=== PATIENT | male | born 1945 | race Caucasian/White ===

== ENCOUNTER 2022-07-25 10:57 | Inpatient (IN) | payer MEDICARE ==
[~2022-07-25] VITALS: Ht 195 cm; Wt 71.4 kg
[2022-07-25] MEDS ORDERED: diphenhydrAMINE 25 MG TAB (BENADRYL) PO PRN (11:15)
[2022-07-25] MEDS ORDERED: ACETAMINOPHEN 325 MG TABLET PO PRN (11:15)
[2022-07-25] MEDS ORDERED: LACTULOSE SYRUP 10GM/15ML (ENULOSE) 30ML UDC PO PRN (11:15)
[2022-07-25] MEDS ORDERED: ONDANSETRON 4 MG (ZOFRAN) ORAL DISSOLVE TAB PO PRN (11:15)
[2022-07-25] MEDS ORDERED: morphine IMMEDIATE RELEASE 15 MG TABLET PO PRN (11:15)
[2022-07-25] MEDS ORDERED: morphine INJ 4 MG/ML 1 ML (VIAL/SYRINGE) IV PRN (11:15)
[2022-07-25] MEDS ORDERED: MILK OF MAGNESIA 400 MG/5 ML 30 ML UDC PO PRN (11:15)
[2022-07-25] MEDS ORDERED: MELATONIN 3 MG TABLET PO PRN (11:15)
[2022-07-25] MEDS ORDERED: CALCIUM CARBONATE 500 MG (TUMS) TAB.CHEW PO PRN (11:15)
[2022-07-25] MEDS ORDERED: NS IV 500 ML 500 ML IV PRN (11:15)
[2022-07-25] MEDS ORDERED: diphenhydrAMINE 50 MG/ML INJ (BENADRYL) IVP PRN (11:15)
[2022-07-25] MEDS ORDERED: ANTACID SUSP 30 ML UDC (MYLANTA) PO PRN (11:15)
[2022-07-25] MEDS ORDERED: polyethylene glycoL POWDER 17 GM (MIRALAX) PACK PO PRN (11:15)
[2022-07-25] MEDS ORDERED: ONDANSETRON 4 MG/2 ML (SDV) Z0FRAN IV PRN (11:15)
[2022-07-25] MEDS ORDERED: BISACODYL 10 MG SUPP (DULCOLAX) PR PRN (11:15)
--- NOTE | 2022-07-25 14:13 | Consultation-Cardiology ---
HPI-Cardiology Cardiology Consultation: Date of Consultation 07/25/22 Time Seen by a Provider: 14:30 Date of Admission 07-25-22 Attending Physician 07-25-22 Admitting Physician Admitting Physician: Vivien Greenberg DO Attending Physician: Vivien Greenberg DO Consulting Physician Feliberto Madrid MD HPI: Chief Complaint: CHB Bradycardia Mr. Phillips is a 76 yr old male transferred to ICU 9 from the [facility] ED with bradycardia and COVID +. [place] is [place]. He reports for the last several days he has had increasing weakness, SOB, cough and dizziness. He denies any syncope or near syncope. He reports he has a chronically "low HR" and if his HR is above 55 bpm that is unusual for him. He reports dry cough over the last few days. No c/o LE swelling. He reports he quit smoking 3 months ago. He reports he just moved to [place] less than a yr ago from [place]. He states he does not have a PCP locally yet and is still seeing his PCP in [place]. He reports occ diarrhea. No n/v. No report of fever or chills. Review of Systems-Cardiology Review of Systems Constitutional: No chills, No fever; lightheadedness, malaise Eyes: No vision change Ears/Nose/Throat: No nasal drainage, No recent hearing loss Respiratory: As described under HPI Cardiovascular: As described under HPI Gastrointestinal: As described under HPI Genitourinary: dysuria; No hematuria Musculoskeletal: no symptoms reported Skin: No rash on exposed areas, No ulcerations on exposed areas Psychiatric/Neurological: No anxiety, No depression, No seizure, No focal weakness, No syncope Hematologic: No bleeding abnormalities [id number] Hx Past Medical History PMH As described under Assessment. Family Medical History Family Medical History: No reported family h/o CAD or SCD. Allergies and Home Medications Allergies Coded Allergies: No Known Drug Allergies (Unverified , 07/25/22) Patient Home Medication List Amlodipine Besylate (Amlodipine Besylate) 10 Mg Tablet, 10 MG PO HS, (Reported) Entered as Reported by: JOSHUA GOODE on 07/25/221610 Last Action: Reviewed Atorvastatin Calcium (Atorvastatin Calcium) 20 Mg Tablet, 20 MG PO HS, (Reported) Entered as Reported by: JOSHUA GOODE on 07/25/221610 Last Action: Reviewed Metformin HCl (Metformin HCl) 500 Mg Tablet, 500 MG PO BID WITH MEALS, (Reported) Entered as Reported by: JOSHUA GOODE on 07/25/221610 Last Action: Reviewed Metoprolol Tartrate (Metoprolol Tartrate) 25 Mg Tablet, 12.5 MG PO DAILY, (Reported) Entered as Reported by: JOSHUA GOODE on 07/25/221610 Last Action: Reviewed Multivitamin (Multivitamin) 1 Each Tablet, 1 EACH PO DAILY, (Reported) Entered as Reported by: JOSHUA GOODE on 07/25/221610 Last Action: Reviewed Physical Exam-Cardiology Physical Exam Vital Signs/I&O 07/25/22 07/25/22 07/25/22 07/25/22 21:00 22:00 23:00 23:59 Pulse 71 72 57 Resp 22 19 16 B/P (MAP) 140/70 (93) 146/90 (108) 143/83 (103) Pulse Ox 95 94 93 O2 Delivery Room Air Room Air Room Air Room Air FiO2 96 07/26/22 07/26/22 07/26/22 07/26/22 00:00 01:00 01:00 02:00 Temp 36.9 Pulse 85 51 58 56 Resp 21 14 19 B/P (MAP) 181/98 (125) 130/78 (100) 139/87 (121) Pulse Ox 93 93 93 O2 Delivery Room Air Room Air Room Air 07/26/22 07/26/22 07/26/22 07/26/22 03:00 04:00 04:00 05:00 Pulse 73 78 71 Resp 28 22 25 B/P (MAP) 143/100 (120) 123/83 (95) 133/82 (99) Pulse Ox 97 94 O2 Delivery Room Air Room Air Room Air Room Air FiO2 95 07/26/22 07/26/22 07/26/22 06:00 07:06 08:00 Pulse 60 70 59 Resp 16 21 B/P (MAP) 136/73 (94) 153/89 (110) Pulse Ox 95 95 O2 Delivery Room Air Room Air 07/26/22 00:00 Intake Total 380 ml Output Total 1550 ml Balance -1170 ml Capillary Refill : Constitutional: AAO x 3, well-developed, well-nourished HEENT: PERRL, hearing is well preserved, oral hygience is good Neck: No carotid bruit; carotid pulses are 2 + bilaterally Respiratory: No accessory muscle use, No respiratory distress; chest expansion is symmetric, chest is bilaterally symmetric, other (prolonged exp phase) Cardiovascular: regular rate-rhythm; No JVD; S1 and S2 Gastrointestinal: No tender; soft, round, audible bowel sounds Extremities: no lower extremity edema bilateral Neurologic/Psychiatric: grossly intact (moves all extremities) Skin: No rash on exposed areas, No ulcerations on exposed areas Data Review Labs Laboratory Tests 07/25/22 15:36: Glucometer 90 07/25/22 20:38: Glucometer 101 07/26/22 05:13: White Blood Count 4.8, Red Blood Count 4.24L, Hemoglobin 12.9L, Hematocrit 37L, Mean Corpuscular Volume 88, Mean Corpuscular Hemoglobin 30, Mean Corpuscular Hemoglobin Concent 35, Red Cell Distribution Width 13.0, Platelet Count 138, Mean Platelet Volume 11.1, Immature Granulocyte % (Auto) 0, Neutrophils (%) (Auto) 56, Lymphocytes (%) (Auto) 32, Monocytes (%) (Auto) 11, Eosinophils (%) (Auto) 0, Basophils (%) (Auto) 1, Neutrophils # (Auto) 2.7, Lymphocytes # (Auto) 1.5, Monocytes # (Auto) 0.5, Eosinophils # (Auto) 0.0, Basophils # (Auto) 0.0, Immature Granulocyte # (Auto) 0.0, Sodium Level 144, Potassium Level 3.3L, Chloride Level 107, Carbon Dioxide Level 22, Anion Gap 15H, Blood Urea Nitrogen 16, Creatinine 1.10, Estimat Glomerular Filtration Rate 69, BUN/Creatinine Ratio 15, Glucose Level 102, Calcium Level 8.8, Corrected Calcium 8.7, Phosphorus Level 2.7, Magnesium Level 1.8, Total Bilirubin 0.6, Aspartate Amino Transf (AST/SGOT) 38H, Alanine Aminotransferase (ALT/SGPT) 25, Alkaline Phosphatase 56, Total Protein 7.9, Albumin 4.1 07/26/22 06:14: Glucometer 121H Lab from [facility] ED reviewed Radiology CXR from [facility] reviewed A/P-Cardiology Assessment/Admission Diagnosis CHB seen on EKG at [facility] Dizziness COVID + - management per medical services HTN HLD DM 2 Discussion and Recomendations CHB seen on EKG at [facility] reported HR 31 - telemetry tracings from [facility] show bradycardia with intermittent CHB - received 2 doses of Atropine at [facility] - stop all rate lowering agents - If bradycardia persists or CHB is seen despite rate lowering agents may need PPM COVID + - management per medical services Monitor lab closely - replace electrolytes HTN - treat with Amlodipine Echocardiogram today Further recs will be based on his hospital course We would like to thank medical services for this consult LEIN MIKE Jul 25, 2022 14:13
--- NOTE | 2022-07-25 14:35 | Progress Note ---
ANIBAL REYNOSO 07/25/22 1435: Progress Note SUBJECTIVE CC: Heart Block HPI: 76yo male presented to the [place] ED after experiencing two falls this morning. The patient claimed he had been feeling dizzy for the past 3 days and felt like he was coming down with a cold, after he fell this morning he knew he should go to the ED. He denied any head trauma during the falls, claimed he fell onto the couch. Once arriving to the [place] ED the patient was found to have a potential 3rd degree heart block. He was also found to be Covid positive. He was transferred to [facility] and admitted into the ICU. His initial ECG at [facility] showed the patient had a right bundle branch block. Cardiology has been consulted. PMH: Patient denied having any past medical history/no history of chronic disease PSH: Inguinal hernia repair (30 years ago) ALL: NKDA Meds: KCl 50ml @0 mls/hr IV Daily-Protocol Magnesium Sulfate/Dextrose 100ml @ 0mls/hr daily-Protocol K Dur Tablet 40meq Daily PO Senna 8.6mg BID PO Colace 100mg BID PO NovoLOG ACHS SC Sliding scale Lovenox Injection 40mg SC NaCl 500ml @30ml/hr [id number] PRN IV Morphine injection 2mg Q4H PRN IV Morphine tablet 7.5mg PRN PO Oxycodone 5mg Q4H PRN PO Benadryl tablet 25mg Q6H PRN PO Calcium Carbonate 500mg Q1H PRN PO Mylanta 30ml QID PRN PO Lactulose 20gm BID PRN PO Magnesium Hydroxide 30ml Daily PRN Dulcolax 10mg Daily PRN MO Miralax 17gm BID PRN PO Melatonin Tablet 3mg HS PRN Zofran 4mg Q6H PRN IV Tylenol 650mg Q4H PRN PO SH: Alcohol= None Tobacco= Smoked less than half a pack a day for 60 years. Quit 2 months ago Drugs= None FH: Father= Patient does not know Mother= Patient does not know No siblings ROS: Reports lightheadedness. Denies fever, SOB, N/V, abdominal pain, MUELLER OBJECTIVE Vitals Temp- BP-113/77 Pulse-52 RR- 16 O2-96 on RA Physical Exam General: Patient is in no apparent distress. CVS: Bradycardic. Denies chest pain. No rubs, gallops. Pulmonary: No increased work of breathing. In no apparent respiratory distress. Denies SOB. LE: No edema b/l. Sensation intact b/l. Pulses 2+ b/l ASSESSMENT+PLAN Heart Block Cardiology consulted Telemetry Place transcutaneous pacing pads Serial ECG and Troponin Covid Positive Tylenol for antipyretic PRN Lovenox 40mg SC daily for DVT prophylaxis Supportive care VIVIEN GIRALDO DO 07/26/22 0552: Supervisory-Addendum Brief Verification & Attestation Participated in pt care: history, MDM, physical Personally performed: exam, history, MDM, supervision of care Care discussed with: Medical Student Procedures: n/a Results interpretation: Verified all documentation Verification and Attestation of Medical Student E/M Service A medical student performed and documented this service in my presence. I reviewed and verified all information documented by the medical student and made modifications to such information, when appropriate. I personally performed the physical exam and medical decision making. Vivien Giraldo, Jul 26, 2022,05:52 ANIBAL REYNOSO Jul 25, 2022 14:35 VIVIEN GIRALDO DO Jul 26, 2022 05:52
[2022-07-25] MEDS ORDERED: ENOXAPARIN 40 MG/0.4 ML (LOVENOX) SYR SC SCH (15:00)
[2022-07-25] MEDS: NS IV 1000 ML 1,000 ML IV SCH ×2 (15:29→19:15)
[2022-07-25] MEDS: inSUlin ASPART (NovoLOG) 1 UNIT/0.01 ML (CHARGE PER UNIT) SC SCH ×2 (15:43→21:00)
[2022-07-25] MEDS ORDERED: METF-397 PO (16:11)
[2022-07-25] MEDS ORDERED: AMLO-251 PO (16:11)
[2022-07-25] MEDS ORDERED: ATOR20TA66 PO (16:11)
[2022-07-25] MEDS ORDERED: METO-333 PO (16:11)
[2022-07-25] MEDS ORDERED: MULT-1136 PO (16:11)
--- NOTE | 2022-07-25 17:34 | Consultation-Cardiology ---
HPI-Cardiology Cardiology Consultation: Date of Consultation 07/25/22 Time Seen by a Provider: 16:30 Date of Admission Attending Physician Admitting Physician Admitting Physician: Vivien Greenberg DO Attending Physician: Vivien Greenberg DO Consulting Physician ADAM WARD MD, MA, FACP, [facility], CCDS HPI: Chief Complaint: Reason for card consult: Bradycardia, intermittent advanced AV block Mr. Phillips is a 76 yr old male transferred to ICU 9 from the [facility] ED with bradycardia and COVID +. [id number]. He reports for the last several days he has had increasing weakness, SOB, cough and dizziness. He denies any syncope or near syncope. He reports he has a chronically "low HR" and if his HR is above 5 5 bpm that is unusual for him. He reports dry cough over the last few days. No c/o LE swelling. He reports he quit smoking 3 months ago. He reports he just moved to [place] less than a yr ago from [place]. He states he does not have a PCP locally yet and is still seeing his PCP in [place]. He reports occ diarrhea. No n/v. No report of fever or chills. Review of Systems-Cardiology Review of Systems Constitutional: No chills, No fever; lightheadedness, malaise Eyes: No vision change Ears/Nose/Throat: No nasal drainage, No recent hearing loss Respiratory: As described under HPI Cardiovascular: As described under HPI Gastrointestinal: As described under HPI Genitourinary: dysuria; No hematuria Musculoskeletal: no symptoms reported Skin: No rash on exposed areas, No ulcerations on exposed areas Psychiatric/Neurological: No anxiety, No depression, No seizure, No focal weakness, No syncope Hematologic: No bleeding abnormalities TLH-Lbrimn-Hfweuv Hx Patient Social History Alcohol Use?: No Pt feels they are or have been: No Past Medical History PMH As described under Assessment. Family Medical History Family Medical History: No reported family h/o CAD or SCD. Allergies and Home Medications Allergies Coded Allergies: No Known Drug Allergies (Unverified , 07/25/22) Patient Home Medication List Home Medication List Reviewed: Yes Amlodipine Besylate (Amlodipine Besylate) 10 Mg Tablet, 10 MG PO HS, (Reported) Entered as Reported by: JOSHUA GOODE on 07/25/22 1611 Last Action: Reviewed Atorvastatin Calcium (Atorvastatin Calcium) 20 Mg Tablet, 20 MG PO HS, (Reported) Entered as Reported by: JOSHUA GOODE on 07/25/221610 Last Action: Reviewed Metformin HCl (Metformin HCl) 500 Mg Tablet, 500 MG PO BID WITH MEALS, (Reported) Entered as Reported by: OJSHUA GOODE on 07/25/221610 Last Action: Reviewed Metoprolol Tartrate (Metoprolol Tartrate) 25 Mg Tablet, 12.5 MG PO DAILY, (Reported) Entered as Reported by: JOSHUA GOODE on 07/25/221610 Last Action: Reviewed Multivitamin (Multivitamin) 1 Each Tablet, 1 EACH PO DAILY, (Reported) Entered as Reported by: JOSHUA GOODE on 07/25/221610 Last Action: Reviewed Physical Exam-Cardiology Physical Exam Vital Signs/I&O 07/25/22 07/25/22 07/25/22 07/25/22 14:00 14:15 14:18 14:30 Pulse 74 77 78 57 Resp 30 14 B/P (MAP) 131/37 (68) 153/80 (104) 163/88 (113) Pulse Ox 97 97 98 O2 Delivery Room Air Room Air Room Air 07/25/22 07/25/22 07/25/22 07/25/22 14:45 15:00 15:15 15:30 Pulse 74 52 57 49 Resp 20 16 18 23 B/P (MAP) 165/74 (104) 113/77 (89) 136/121 (126) 148/62 (90) Pulse Ox 95 96 97 97 O2 Delivery Room Air Room Air Room Air Room Air 07/25/22 07/25/22 07/25/22 07/25/22 15:45 16:00 16:00 16:00 Temp 36.8 Pulse 55 51 Resp 23 20 B/P (MAP) 171/134 (146) 126/69 (88) Pulse Ox 96 96 O2 Delivery Room Air Nasal Cannula Room Air O2 Flow Rate 2.00 FiO2 96 07/25/22 07/25/22 07/25/22 07/25/22 16:15 16:30 16:45 17:00 Pulse 48 49 56 60 Resp 9 16 18 B/P (MAP) 150/65 (93) 111/83 (92) 140/72 (94) 109/75 (86) Pulse Ox 96 95 95 95 O2 Delivery Room Air Room Air Room Air Room Air Capillary Refill : Constitutional: AAO x 3, well-developed, well-nourished HEENT: PERRL, hearing is well preserved, oral hygience is good Neck: No carotid bruit; carotid pulses are 2 + bilaterally Respiratory: No accessory muscle use, No respiratory distress; chest expansion is symmetric, chest is bilaterally symmetric, other (prolonged exp phase) Cardiovascular: regular rate-rhythm; No JVD; S1 and S2 Gastrointestinal: No tender; soft, round, audible bowel sounds Extremities: no lower extremity edema bilateral Neurologic/Psychiatric: grossly intact (moves all extremities) Skin: No rash on exposed areas, No ulcerations on exposed areas Data Review Labs Laboratory Tests 07/25/22 15:36: Glucometer 90 A/P-Cardiology Assessment/Admission Diagnosis Intermittent advanced AV block seen on EKG at [facility] - ECG at time of admission to this hospital: s. dipesh (50s) and 1 deg AVB and RBBB Dizziness COVID + - management per medical services HTN HLD DM 2 Intermittent confusion - managed by the [facility] [employer] Discussion and Recomendations Bradycardia - stop all rate lowering agents - If symptomatic bradycardia or adv AV block is seen despite d/c rate-lowering agents, then may need PPM COVID + - management per medical services Monitor lab closely - replace electrolytes HTN - treat with Amlodipine Echocardiogram today Further recs will be based on his hospital course We would like to thank Medical services for this consult ADAM WARD MD FACP [facility] CCDS Jul 25, 2022 17:34
--- NOTE | 2022-07-25 17:55 | History & Physical ---
History of Present Illness Date Seen 07/25/22 Attending Physician PCP Admitting Physician: Vivien Greenberg DO Attending Physician: Vivien Greenberg DO Referring Physician Date of Admission Jul 25, 2022 at 14:03 Home Medications & Allergies Home Medications Reviewed patient Home Medication Reconciliation performed by pharmacy medication reconciliations mechanical sound technician and/or nursing. Patients Allergies have been reviewed. Allergies Allergies Coded Allergies No Known Drug Allergies (Unverified07/25/22) Physical Exam Physical Exam Vital Signs Vital Signs - First Documented 07/25/22 07/25/22 07/25/22 14:00 14:15 16:00 Temp 36.8 Pulse 74 Resp 30 B/P (MAP) 131/37 (68) Pulse Ox 97 O2 Delivery Room Air Capillary Refill : Height, Weight, BMI Height: '" Weight: lbs. oz. kg; 19.69 BMI Method: Results Results/Procedures Labs Laboratory Tests 07/26/22 05:13 Patient resulted labs reviewed. VIVIEN GREENBERG DO Jul 25, 2022 17:55
--- NOTE | 2022-07-25 18:04 | Tele-ICU Consult ---
History of Present Illness History of Present Illness Date Seen by Provider: Jul 25, 2022 Time Seen by Provider: 18:04 Date of Admission (Tele-ICU Physician , consultation) Available chart/ vitals / labs / Images reviewed H&P is from ER notes Patient's information available about PMH, Shx, Fhx allergy reviewed inEMR. ROS as per chart and RN report Now in ICU, hemodynamically stable Video assessment done using teleICU camera, rest of exam as per RN Discussed with RN. Consultants: Hospital course: 07/25 -from [place] ED -76 y/o male direct admit with 2nd degree heart block (+)COVID A/P Intermittent advanced AV block seen on EKG at [facility] - seem by cards " ECG at time of admission to this hospital: s. dipesh (50s) and 1 deg AVB and RBBB - all home meds on hold COVID + - not hypoxix - no need for steroids - will not recomn RMSV with dipesh if ge tworse DM 2 - ISS Intermittent confusion - managed by the Med svce Lines : , (Central Line Necessity Reviewed) [place]: OG: Nutrition: Analgesia: Anxiety/ delirium VTE Prophylaxis: jamia 40 Stress Ulcer Prophylaxis: na Plans in collaboration with bedside consultants and IM MDs. Discussed with RN to reach out if any questions or concerns A total of 20 minutes of critical care time was devoted to this patient today, required to treat and/or prevent further deterioration of critical care condition ( as above ) . Allergies and Home Medications Allergies Coded Allergies: No Known Drug Allergies (Unverified , 07/25/22) Home Medications Amlodipine Besylate 10 Mg Tablet, 10 MG PO HS, (Reported) Atorvastatin Calcium 20 Mg Tablet, 20 MG PO HS, (Reported) Metformin HCl 500 Mg Tablet, 500 MG PO BID WITH MEALS, (Reported) Metoprolol Tartrate 25 Mg Tablet, 12.5 MG PO DAILY, (Reported) TAKES OF A 25MG TAB Multivitamin 1 Each Tablet, 1 EACH PO DAILY, (Reported) Past Medical/Social/Family Hx Patient Social History Tobacco Use?: No Use of E-Cig and/or Vaping dev: No Substance use?: No Alcohol Use?: No Pt stated abuse/neglect: No Current Status Advance Directives: No Communicates: Verbally Primary Language: [place] Sensory deficits: Vision impairment, Hearing impairment Review of Systems Constitutional: see HPI Focused Exam Height, Weight, BMI Height: '" Weight: lbs. oz. kg; 19.69 BMI Method: Exam Exam Patient acknowledged, consented, and participated in this virtual visit which was conducted using real time audio/video Vital Signs Date Time Temp Pulse Resp B/P (MAP) Pulse Ox O2 Delivery O2 Flow Rate FiO2 07/25/22 17:00 60 18 109/75 (86) 95 Room Air 07/25/22 16:45 56 140/72 (94) 95 Room Air 07/25/22 16:30 49 16 111/83 (92) 95 Room Air 07/25/22 16:15 48 9 150/65 (93) 96 Room Air 07/25/22 16:00 36.8 07/25/22 16:00 51 20 126/69 (88) 96 Room Air 07/25/22 16:00 Nasal Cannula 2.00 96 07/25/22 15:45 55 23 171/134 (146) 96 Room Air 07/25/22 15:30 49 23 148/62 (90) 97 Room Air 07/25/22 15:15 57 18 136/121 (126) 97 Room Air 07/25/22 15:00 52 16 113/77 (89) 96 Room Air 07/25/22 14:45 74 20 165/74 (104) 95 Room Air 07/25/22 14:30 57 14 163/88 (113) 98 Room Air 07/25/22 14:18 78 07/25/22 14:15 77 30 153/80 (104) 97 Room Air 07/25/22 14:00 74 131/37 (68) 97 Room Air Height & Weight Height: '" Weight: lbs. oz. kg; 19.69 BMI Method: General Appearance: No Apparent Distress Assessment/Plan Assessment/Plan 1 ABBE BARNES MD Jul 25, 2022 18:04
[2022-07-25] MEDS: SENNOSIDES 8.6 MG (SENOKOT) TAB PO SCH (21:00)
[2022-07-25] MEDS: DOCUSATE SODIUM 100 MG (COLACE) CAP PO SCH (21:00)
--- NOTE | 2022-07-25 22:40 | History & Physical ---
ANIBAL REYNOSO 07/25/22 6830: History of Present Illness History of Present Illness Reason for visit/HPI CC: Heart Block HPI: 76yo male presented to the [place] ED after experiencing two falls this m orn. The patient claimed he had been feeling dizzy for the past 3 days and felt like he was coming down with a cold, after he fell this morning he knew he should go to the ED. He denied any head trauma during the falls, claimed he fell onto the couch. Once arriving to the [place] ED the patient was found to have a potential 3rd degree heart block. He was also found to be Covid positive. He was transferred to [facility] and admitted into the ICU. His initial ECG at [facility] showed the patient had a right bundle branch block. Cardiology has been consulted. Date of Admission Jul 25, 2022 at 14:03 Date Seen by a Provider: Jul 25, 2022 Time Seen by a Provider: 15:30 I consulted on this patient on 07/25/22 22:35 Attending Physician Admitting Physician Admitting Physician: Vivien Greenberg DO Attending Physician: Vivien Greenberg DO Consult Allergies and Home Medications Allergies Coded Allergies: No Known Drug Allergies (Unverified , 07/25/22) Patient Home Medication List Amlodipine Besylate (Amlodipine Besylate) 10 Mg Tablet, 10 MG PO HS, (Reported) Entered as Reported by: JOSHUA GOODE on 07/25/221610 Last Action: Reviewed Atorvastatin Calcium (Atorvastatin Calcium) 20 Mg Tablet, 20 MG PO HS, (Reported) Entered as Reported by: JOSHUA GOODE on 07/25/221610 Last Action: Reviewed Metformin HCl (Metformin HCl) 500 Mg Tablet, 500 MG PO BID WITH MEALS, (Reported) Entered as Reported by: JOSHUA GOODE on 07/25/221610 Last Action: Reviewed Metoprolol Tartrate (Metoprolol Tartrate) 25 Mg Tablet, 12.5 MG PO DAILY, (Reported) Entered as Reported by: JOSHUA GOODE on 07/25/221610 Last Action: Reviewed Multivitamin (Multivitamin) 1 Each Tablet, 1 EACH PO DAILY, (Reported) Entered as Reported by: JOSHUA GOODE on 07/25/221610 Last Action: Reviewed Past Jgiwnle-Tmowrf-Wvkdre Hx Patient Social History Marrital Status: Tobacco Use?: Yes Tobacco type used: Cigarettes Smoking Status: Former Smoker (Half a pack for 60 years. Quit 2 months ago) Use of E-Cig and/or Vaping dev: No Substance use?: No Alcohol Use?: No Pt feels they are or have been: No Current Status Advance Directives: No Communicates: Verbally Primary Language: [place]se Sensory deficits: Vision impairment, Hearing impairment Past Medical History Surgeries: Abdominal (Hernia repair) Patient claims he has no medical history, no chronic medical conditions Family Medical History No Pertinent Family Hx (Pt. reported has not seen parents since age 15) Review of Systems Constitutional: No chills, No dizziness, No fever; other (Lightheaded) Respiratory: No short of breath Cardiovascular: No chest pain Gastrointestinal: No abdominal pain, No nausea, No vomiting Physical Exam Vital Signs Vital Signs - First Documented 07/25/22 07/25/22 07/25/22 14:00 14:15 16:00 Temp 36.8 Pulse 74 Resp 30 B/P (MAP) 131/37 (68) Pulse Ox 97 O2 Delivery Room Air Capillary Refill : Height, Weight, BMI Height: '" Weight: lbs. oz. kg; 19.69 BMI Method: General Appearance: No Apparent Distress Respiratory: Chest Non Tender, Lungs Clear, No Accessory Muscle Use, No Respiratory Distress Cardiovascular: No Edema, No Gallop, Normal Peripheral Pulses, Bradycardia Gastrointestinal: Non Tender, Soft Extremity: Normal Capillary Refill, Normal Inspection, Non Tender, No Calf Tenderness, No Pedal Edema Neurologic/Psychiatric: Alert, Oriented x3 Assessment/Plan Assessment and Plan Heart Block Cardiology consulted Telemetry Place transcutaneous pacing pads Serial ECG and Troponin Echo tomorrow Covid Positive Tylenol for antipyretic PRN Lovenox 40mg SC daily for DVT prophylaxis Monitor O2 IV fluids Monitor mental status VIVIEN GREENBERG DO 07/26/22 0557: History of Present Illness History of Present Illness Reason for visit/HPI CC: Heart block with bradycardia and COVID HPI: This is a 76 yo male patient who moved her 1 year ago and still kept his PCP in [facility] who has a h/o DM, HTN, HLP who presented to [facility] for higher level of care from [facility] due to bradycardia and heart block with COVID. Currently he is doing well but still a bit confused and hallucinating. Allergies and Home Medications Allergies Coded Allergies: No Known Drug Allergies (Unverified , 07/25/22) Patient Home Medication List Home Medication List Reviewed: Yes Amlodipine Besylate (Amlodipine Besylate) 10 Mg Tablet, 10 MG PO HS, (Reported) Entered as Reported by: JOSHUA GOODE on 07/25/221610 Last Action: Reviewed Atorvastatin Calcium (Atorvastatin Calcium) 20 Mg Tablet, 20 MG PO HS, (Reported) Entered as Reported by: JOSHUA GOODE on 07/25/221610 Last Action: Reviewed Metformin HCl (Metformin HCl) 500 Mg Tablet, 500 MG PO BID WITH MEALS, (Reported) Entered as Reported by: JOSHUA GOODE on 07/25/221610 Last Action: Reviewed Metoprolol Tartrate (Metoprolol Tartrate) 25 Mg Tablet, 12.5 MG PO DAILY, (Reported) Entered as Reported by: JOSHUA GOODE on 07/25/221610 Last Action: Reviewed Multivitamin (Multivitamin) 1 Each Tablet, 1 EACH PO DAILY, (Reported) Entered as Reported by: JOSHUA GOODE on 07/25/221610 Last Action: Reviewed Past Texfdls-Erybxe-Ffowwc Hx Patient Social History Marrital Status: Tobacco Use?: Yes Tobacco type used: Cigarettes Smoking Status: Former Smoker (Half a pack for 60 years. Quit 2 months ago) Past Medical History High Cholesterol, Hypertension Diabetes, Non-Insulin dep Review of Systems Constitutional: see HPI, malaise, weakness EENTM: no symptoms reported Respiratory: dyspnea on exertion Cardiovascular: palpitations Gastrointestinal: no symptoms reported Genitourinary: no symptoms reported Musculoskeletal: no symptoms reported Skin: no symptoms reported Psychiatric/Neurological: Anxiety All Other Systems Reviewed Negative Unless Noted: Yes Physical Exam General Appearance: No Apparent Distress, WD/WN, Chronically ill Eyes: Bilateral Eye Normal Inspection, Bilateral Eye PERRL, Bilateral Eye EOMI HEENT: PERRL/EOMI, Normal ENT Inspection, Pharynx Normal Neck: Full Range of Motion, Normal Inspection, Non Tender, Supple, Carotid Bruit Respiratory: Chest Non Tender, Lungs Clear, Normal Breath Sounds, No Accessory Muscle Use, No Respiratory Distress Cardiovascular: No Edema, No Gallop, No JVD, No Murmur, Normal Peripheral Pulses, Bradycardia Gastrointestinal: Normal Bowel Sounds, No Organomegaly, No Pulsatile Mass, Non Tender, Soft Back: Normal Inspection, No CVA Tenderness, No Vertebral Tenderness Extremity: Normal Capillary Refill, Normal Inspection, Normal Range of Motion, Non Tender, No Calf Tenderness, No Pedal Edema Neurologic/Psychiatric: Alert, Oriented x3, No Motor/Sensory Deficits, Normal Mood/Affect Skin: Normal Color, Warm/Dry Lymphatic: No Adenopathy Assessment/Plan Assessment and Plan Assessment: Severe synptomatic bradycardia COVID HTN HLP DM Hallucinations Plan: Monitor closely Temporary pacemaker Cardiology consultation Problems: (1) Heart block (2) COVID (3) Hallucinations (4) Former smoker Admission Diagnosis Admission Status: Inpatient Order (span 2 midnights) Reason for Inpatient Admission: covid with bradycardia Supervisory-Addendum Brief Verification & Attestation Participated in pt care: history, MDM, physical Personally performed: exam, history, MDM, supervision of care Care discussed with: Medical Student Procedures: n/a Results interpretation: Verified all documentation Verification and Attestation of Medical Student E/M Service A medical student performed and documented this service in my presence. I reviewed and verified all information documented by the medical student and made modifications to such information, when appropriate. I personally performed the physical exam and medical decision making. Vivien Greenberg Jul 26, 2022,05:57 ANIBAL REYNOSO Jul 25, 2022 22:40 VIVIEN GREENBERG DO Jul 26, 2022 05:57
[2022-07-26 05:24] LABS: BASOPHILS % (AUTO) 1 % (0-10); EOSINOPHILS % (AUTO) 0 % (0-10); HEMATOCRIT 37 % (40-54); HEMOGLOBIN 12.9 g/dL (13.3-17.7); LYMPHOCYTES # (AUTO) 1.5 10^3/uL (1.0-4.0); LYMPHOCYTES % (AUTO) 32 % (12-44); MEAN CORPUSCULAR HEMOGLOBIN 30 pg (25-34); MEAN CORPUSCULAR HGB CONC 35 g/dL (32-36); MEAN CORPUSCULAR VOLUME 88 fL (80-99); MEAN PLATELET VOLUME 11.1 fL (9.0-12.2); MONOCYTES # (AUTO) 0.5 10^3/uL (0.0-1.0); MONOCYTES % (AUTO) 11 % (0-12); NEUTROPHILS # (AUTO) 2.7 10^3/uL (1.8-7.8); NEUTROPHILS % (AUTO) 56 % (42-75); PLATELET COUNT 138 10^3/uL (130-400); WHITE BLOOD COUNT 4.8 10^3/uL (4.3-11.0)
[2022-07-26 05:32] LABS: ALBUMIN 4.1 GM/DL (3.2-4.5)
[2022-07-26 05:33] LABS: POTASSIUM 3.3 MMOL/L (3.6-5.0)
[2022-07-26 05:34] LABS: CALCIUM 8.8 MG/DL (8.5-10.1)
[2022-07-26 05:35] LABS: TOTAL PROTEIN 7.9 GM/DL (6.4-8.2)
[2022-07-26 05:37] LABS: BILIRUBIN,TOTAL 0.6 MG/DL (0.1-1.0)
[2022-07-26 05:38] LABS: PHOSPHORUS 2.7 MG/DL (2.3-4.7)
[2022-07-26 05:39] LABS: CREATININE SERUM 1.1 MG/DL (0.60-1.30)
[2022-07-26 05:41] LABS: MAGNESIUM 1.8 MG/DL (1.6-2.4)
[2022-07-26] MEDS ORDERED: KCL 20 MEQ TAB (K-DUR) PO ONE ×2 (06:00→08:00)
[2022-07-26] MEDS ORDERED: KCL 20 MEQ TAB (K-DUR) PO SCH (06:00)
[2022-07-26] MEDS ORDERED: POTASSIUM CL 10MEQ/50ML IVPB 50 ML IV SCH (06:00)
[2022-07-26] MEDS: inSUlin ASPART (NovoLOG) 1 UNIT/0.01 ML (CHARGE PER UNIT) SC SCH ×4 (06:00→20:35)
[2022-07-26] MEDS ORDERED: MAGNESIUM 1 GM/100 ML IVPB 100 ML IV SCH (06:00)
--- NOTE | 2022-07-26 06:52 | Diagnostic Imaging Report ---
Indication: COVID positive, heart block. Portable chest 5:10 AM Heart and mediastinum are normal. Lungs are clear. There are no effusions or pneumothoraces. There are granulomatous changes of the right upper lobe. IMPRESSION: No acute abnormalities in the chest. Dictated by: Dictated on workstation # [id number]
[2022-07-26] MEDS: SENNOSIDES 8.6 MG (SENOKOT) TAB PO SCH ×2 (07:39→20:33)
[2022-07-26] MEDS: DOCUSATE SODIUM 100 MG (COLACE) CAP PO SCH ×2 (07:39→20:33)
--- NOTE | 2022-07-26 08:55 | Progress Note - Cardiology ---
Cardiology SOAP Progress Note Subjective: Sitting up in bed No c/o CP, SOB, dizziness, syncope or near syncope Gen fatigue Objective: I&O/Vital Signs 07/26/22 07/26/22 07/26/22 07/26/22 04:00 04:00 05:00 06:00 Pulse 78 71 60 Resp 22 25 16 B/P (MAP) 123/83 (95) 133/82 (99) 136/73 (94) Pulse Ox 97 94 95 O2 Delivery Room Air Room Air Room Air Room Air FiO2 95 07/26/22 07/26/22 07/26/22 07/26/22 07:06 08:00 09:00 09:00 Pulse 70 59 55 Resp 21 17 B/P (MAP) 153/89 (110) 165/107 (126) Pulse Ox 95 O2 Delivery Room Air Room Air Room Air FiO2 96 07/26/22 07/26/22 07/26/22 07/26/22 10:00 11:00 12:00 12:00 Temp 36.1 Pulse 61 61 Resp 17 19 B/P (MAP) 136/88 (104) 129/81 (97) Pulse Ox 96 95 O2 Delivery Room Air Room Air Room Air FiO2 97 07/26/22 07/26/22 07/26/22 07/26/22 12:00 13:00 13:19 14:00 Pulse 57 96 51 50 Resp 22 30 19 B/P (MAP) 143/99 (114) 162/81 (108) 153/85 (107) Pulse Ox 95 97 94 O2 Delivery Room Air Room Air Room Air 07/26/22 00:00 Intake Total 380 ml Output Total 1550 ml Balance -1170 ml Constitutional: AAO x 3, well-developed, well-nourished Respiratory: No accessory muscle use, No respiratory distress; chest expansion is symmetric, chest is bilaterally symmetric, lungs clear to auscultation, other (prolonged exp phase) Cardiovascular: regular rate-rhythm; No JVD; S1 and S2 Gastrointestional: No tender; soft, round, audible bowel sounds Extremities: no lower extremity edema bilateral Neurologic/Psychiatric: grossly intact (moves all extremities) Skin: No rash on exposed areas, No ulcerations on exposed areas Results/Procedures: Labs Laboratory Tests 07/25/22 15:36: Glucometer 90 07/25/22 20:38: Glucometer 101 07/26/22 05:13: White Blood Count 4.8, Red Blood Count 4.24L, Hemoglobin 12.9L, Hematocrit 37L, Mean Corpuscular Volume 88, Mean Corpuscular Hemoglobin 30, Mean Corpuscular Hemoglobin Concent 35, Red Cell Distribution Width 13.0, Platelet Count 138, Mean Platelet Volume 11.1, Immature Granulocyte % (Auto) 0, Neutrophils (%) (Aut o) 56, Lymphocytes (%) (Auto) 32, Monocytes (%) (Auto) 11, Eosinophils (%) (Auto) 0, Basophils (%) (Auto) 1, Neutrophils # (Auto) 2.7, Lymphocytes # (Auto) 1.5, Monocytes # (Auto) 0.5, Eosinophils # (Auto) 0.0, Basophils # (Auto) 0.0, Immature Granulocyte # (Auto) 0.0, Sodium Level 144, Potassium Level 3.3L, Chloride Level 107, Carbon Dioxide Level 22, Anion Gap 15H, Blood Urea Nitrogen 16, Creatinine 1.10, Estimat Glomerular Filtration Rate 69, BUN/Creatinine Ratio 15, Glucose Level 102, Calcium Level 8.8, Corrected Calcium 8.7, Phosphorus Level 2.7, Magnesium Level 1.8, Total Bilirubin 0.6, Aspartate Amino Transf (AST/SGOT) 38H, Alanine Aminotransferase (ALT/SGPT) 25, Alkaline Phosphatase 56, Total Protein 7.9, Albumin 4.1, Thyroid Stimulating Hormone (TSH) 2.06 07/26/22 06:14: Glucometer 121H 07/26/22 11:47: Glucometer 145H Procedures NAME: RICHARD PERERA [facility] REC#: [id number] PT STATUS: ADM IN : 1945 PHYSICIAN: MANJIT GIRALDO DO ADMIT DATE: 07/25/22/ICU Signed Date of Exam:07/26/22 CHEST 1 VIEW, AP/PA ONLY Indication: COVID positive, heart block. Portable chest 5:10 AM Heart and mediastinum are normal. Lungs are clear. There are no effusions or pneumothoraces. There are granulomatous changes of the right upper lobe. IMPRESSION: No acute abnormalities in the chest. Dictated by: Dictated on workstation # [id number] Dict: 07/26/22 0650 Trans: 07/26/22 0842 [facility] [id number] Interpreted by: BERHANE MARTINEZ MD Electronically signed by: BERHANE MARTINEZ MD 07/26/2242 A/P: Assessment: Intermittent advanced AV block seen on EKG at [facility] - ECG at time of admission to this hospital: s. dipesh (50s) and 1 deg AVB and RBBB Dizziness COVID + - management per medical services HTN HLD DM 2 Intermittent confusion - managed by the Med svce Plan: Bradycardia - stop all rate lowering agents - If symptomatic bradycardia or adv AV block is seen despite d/c rate-lowering agents, then may need PPM COVID + - management per medical services Monitor lab closely - replace electrolytes HTN - treat with Amlodipine Echocardiogram today Further recs will be based on his hospital course We would like to thank Medical services for this consult LENI MIKE Jul 26, 2022 08:55
[2022-07-26] MEDS: amLODIPine 5 MG (NORVASC) TAB PO SCH (09:28)
--- NOTE | 2022-07-26 09:28 | Tele-ICU Progress Note ---
Subjective Date Seen by a Provider: Jul 26, 2022 Time Seen by a Provider: 09:28 Subjective/Events-last exam (Tele-ICU Physician , Progress Note ) Available chart/ vitals / labs / Images reviewed Video assessment done using teleICU camera, rest of exam as per RN Discussed with RN Events overnight : Afebrile hemodynamically stable Respiratory - ra I/O = Drips: Pressors- no Consultants: [facility] Hospital course: Consultants: Hospital course: 07/25 -[facility] -76 y/o male direct admit with 2nd degree heart block (+)COVID A/P Intermittent advanced AV block seen on EKG at [facility] - seem by cards " ECG at time of admission to this hospital: s. dipesh (50s) and 1 deg AVB and RBBB -ECHO 60% - all home meds on hold COVID + asymptomatic ( vaccinated ) - not hypoxic- no need for steroids - will not recomn RMSV with dipesh if get worse DM 2 - ISS Intermittent confusion. and ongoing hallucinations - as per RN , reports them being new and recent - will check b12 , tsh, ua - additional eval / neuroexam and need for additional w/up ( images , lp ... - as per bedside team Lines : , (Central Line Necessity Reviewed) [place]: OG: Nutrition: Analgesia: Anxiety/ delirium VTE Prophylaxis: jamia 40 Stress Ulcer Prophylaxis: na Plans in collaboration with bedside consultants and IM MDs. Discussed with RN to reach out if any questions or concerns A total of 31 minutes of critical care time was devoted to this patient today, required to treat and/or prevent further deterioration of critical care condition ( as above ) . Sepsis Event Evaluation Height, Weight, BMI Height: '" Weight: lbs. oz. kg; 19.69 BMI Method: Exam Exam Patient acknowledged, consented, and participated in this virtual visit which was conducted using real time audio/video Vital Signs Date Time Temp Pulse Resp B/P (MAP) Pulse Ox O2 Delivery O2 Flow Rate FiO2 07/26/22 08:00 59 21 153/89 (110) 95 Room Air 07/26/22 07:06 70 07/26/22 06:00 60 16 136/73 (94) 95 Room Air 07/26/22 05:00 71 25 133/82 (99) 94 Room Air 07/26/22 04:00 78 22 123/83 (95) 97 Room Air 07/26/22 04:00 Room Air 95 07/26/22 03:00 73 28 143/100 (120) Room Air 07/26/22 02:00 36.9 56 19 139/87 (121) 93 Room Air 07/26/22 01:00 58 07/26/22 01:00 51 14 130/78 (100) 93 Room Air 07/26/22 00:00 85 21 181/98 (125) 93 Room Air 07/25/22 23:59 Room Air 96 07/25/22 23:00 57 16 143/83 (103) 93 Room Air 07/25/22 22:00 72 19 146/90 (108) 94 Room Air 07/25/22 21:00 71 22 140/70 (93) 95 Room Air 07/25/22 20:00 37.0 07/25/22 20:00 Room Air 95 07/25/22 20:00 52 22 141/77 (98) 95 Room Air 07/25/22 19:00 50 07/25/22 19:00 47 17 120/93 (102) 93 Room Air 07/25/22 18:00 52 20 141/82 (101) 96 Room Air 07/25/22 17:00 60 18 109/75 (86) 95 Room Air 07/25/22 16:45 56 140/72 (94) 95 Room Air 07/25/22 16:30 49 16 111/83 (92) 95 Room Air 07/25/22 16:15 48 9 150/65 (93) 96 Room Air 07/25/22 16:00 36.8 07/25/22 16:00 51 20 126/69 (88) 96 Room Air 07/25/22 16:00 Nasal Cannula 2.00 96 07/25/22 15:45 55 23 171/134 (146) 96 Room Air 07/25/22 15:30 49 23 148/62 (90) 97 Room Air 07/25/22 15:15 57 18 136/121 (126) 97 Room Air 07/25/22 15:00 52 16 113/77 (89) 96 Room Air 07/25/22 14:45 74 20 165/74 (104) 95 Room Air 07/25/22 14:30 57 14 163/88 (113) 98 Room Air 07/25/22 14:18 78 07/25/22 14:15 77 30 153/80 (104) 97 Room Air 07/25/22 14:00 74 131/37 (68) 97 Room Air I & O 07/26/22 07:00 Intake Total 560 ml Output Total 2950 ml Balance -2390 ml Height & Weight Height: '" Weight: lbs. oz. kg; 19.69 BMI Method: General Appearance: No Apparent Distress, WD/WN, Chronically ill HEENT: PERRL/EOMI, Normal ENT Inspection, Pharynx Normal Neck: Full Range of Motion, Normal Inspection, Non Tender, Supple, Carotid Bruit Respiratory: Chest Non Tender, Lungs Clear, Normal Breath Sounds, No Accessory Muscle Use, No Respiratory Distress Cardiovascular: No Edema, No Gallop, No JVD, No Murmur, Normal Peripheral Pulses, Bradycardia Extremity: Normal Capillary Refill, Normal Inspection, Normal Range of Motion, Non Tender, No Calf Tenderness, No Pedal Edema Neurologic/Psychiatric: Alert, Oriented x3, No Motor/Sensory Deficits, Normal Mood/Affect Skin: Normal Color, Warm/Dry Lymphatic: No Adenopathy Results Lab Laboratory Tests 07/26/22 05:13 Assessment/Plan Assessment/Plan 1 ABBE BARNES MD Jul 26, 2022 09:28
--- NOTE | 2022-07-26 10:40 | Progress Note ---
ANIBAL REYNOSO 07/26/22 1040: Subjective Date Seen by a Provider: Jul 26, 2022 Time Seen by a Provider: 09:00 Subjective/Events-last exam 07/26/2022: Altered mental status CXR completed Hypokalemia Covid + Contact pt. PCP Review of Systems General: No Chills, No Night Sweats, No Fatigue, No Malaise Pulmonary: No Dyspnea, No Pleuritic Chest Pain Cardiovascular: Lt Headedness (Upon standing); No: Chest Pain, Palpitations, Orthopnea, Paroxysmal Noc. Dyspnea, Edema Gastrointestinal: No: Nausea, Vomiting, Abdominal Pain Objective Exam Last Set of Vital Signs Vital Signs Date Time Temp Pulse Resp B/P (MAP) Pulse Ox O2 Delivery O2 Flow Rate FiO2 07/26/22 10:00 61 17 136/88 (104) 96 Room Air 07/26/22 09:00 96 07/26/22 02:00 36.9 07/25/22 16:00 2.00 Capillary Refill : I&O Intake and Output 07/25/22 23:59 Intake Total 380 ml Output Total 1550 ml Balance -1170 ml Intake Oral 380 ml Output Urine Total 1550 ml Daily Weight Change No General: Alert Lungs: Clear to Auscultation, Normal Air Movement Heart: Regular Rate, Normal S1, Normal S2, No Murmurs Results Lab Laboratory Tests 07/25/22 15:36: Glucometer 90 07/25/22 20:38: Glucometer 101 07/26/22 05:13: White Blood Count 4.8, Red Blood Count 4.24L, Hemoglobin 12.9L, Hematocrit 37L, Mean Corpuscular Volume 88, Mean Corpuscular Hemoglobin 30, Mean Corpuscular Hemoglobin Concent 35, Red Cell Distribution Width 13.0, Platelet Count 138, Mean Platelet Volume 11.1, Immature Granulocyte % (Auto) 0, Neutrophils (%) (Auto) 56, Lymphocytes (%) (Auto) 32, Monocytes (%) (Auto) 11, Eosinophils (%) (Auto) 0, Basophils (%) (Auto) 1, Neutrophils # (Auto) 2.7, Lymphocytes # (Auto) 1.5, Monocytes # (Auto) 0.5, Eosinophils # (Auto) 0.0, Basophils # (Auto) 0.0, Immature Granulocyte # (Auto) 0.0, Sodium Level 144, Potassium Level 3.3L, Chloride Level 107, Carbon Dioxide Level 22, Anion Gap 15H, Blood Urea Nitrogen 16, Creatinine 1.10, Estimat Glomerular Filtration Rate 69, BUN/Creatinine Ratio 15, Glucose Level 102, Calcium Level 8.8, Corrected Calcium 8.7, Phosphorus Level 2.7, Magnesium Level 1.8, Total Bilirubin 0.6, Aspartate Amino Transf (AST/SGOT) 38H, Alanine Aminotransferase (ALT/SGPT) 25, Alkaline Phosphatase 56, Total Protein 7.9, Albumin 4.1, Thyroid Stimulating Hormone (TSH) 2.06 07/26/22 06:14: Glucometer 121H Assessment/Plan Assessment/Plan Assess & Plan/Chief Complaint Heart Block Cardiology consulted Telemetry Place transcutaneous pacing pads Echo today Covid Positive CXR Tylenol for antipyretic PRN Lovenox 40mg SC daily for DVT prophylaxis Monitor O2 IV fluids Monitor mental status Altered Mental Status CT head ordered for today Contacting the patients PCP Possible baseline dementia Hyperlipidemia Atorvastatin 20mg HS PO Hypokalemia KCl tablet 40meq Daily PO Diabetes Insulin aspart ACHS SC Monitor blood glucose with AM labs Anion gap elevated to 15 today Preventative Care CXR showed granulomatous change of right upper lobe Recommend low dose CT to rule out lung cancer Move to 4th floor after CT and cardiology sees patient Clinical Quality Measures Admission Status Admission Dx Heart Block Cardiology consulted Telemetry Place transcutaneous pacing pads Serial ECG and Troponin Echo tomorrow Covid Positive Tylenol for antipyretic PRN Lovenox 40mg SC daily for DVT prophylaxis Monitor O2 IV fluids Monitor mental status VIVIEN GIRALDO DO 07/27/22 0615: Subjective Subjective/Events-last exam Improved status Cognition is an issue Trying to contact PCP Assessment/Plan Assessment/Plan Assess & Plan/Chief Complaint Isolation Supervisory-Addendum Brief Verification & Attestation Participated in pt care: history, MDM, physical Personally performed: exam, history, MDM, supervision of care Care discussed with: Medical Student Procedures: n/a Results interpretation: Verified all documentation Verification and Attestation of Medical Student E/M Service A medical student performed and documented this service in my presence. I reviewed and verified all information documented by the medical student and made modifications to such information, when appropriate. I personally performed the physical exam and medical decision making. Vivien Giraldo, Jul 27, 2022,06:15 ANIBAL REYNOSO Jul 26, 2022 10:40 VIVIEN GIRALDO DO Jul 27, 2022 06:15
--- NOTE | 2022-07-26 11:17 | Diagnostic Imaging Report ---
PROCEDURE: CT head without contrast. TECHNIQUE: Multiple contiguous axial images were obtained through the brain without the use of intravenous contrast. Auto Exposure Controls were utilized during the CT exam to meet ALARA standards for radiation dose reduction. INDICATION: Altered mental status, positive COVID. FINDINGS: There is generalized atrophy. There are no masses or hemorrhages. There are no extra-axial fluid collections. The paranasal sinuses are clear. IMPRESSION: Senescent changes of the brain with mild diffuse cerebral degeneration. No acute abnormality seen. Dictated by: Dictated on workstation # [id number]
[2022-07-26] MEDS ORDERED: KCL 20 MEQ TAB (K-DUR) PO NR (12:00)
[2022-07-26] MEDS: ENOXAPARIN INJECTION 30 MG/0.3 ML SYR SC SCH (14:40)
--- NOTE | 2022-07-26 15:00 | Progress Note - Cardiology ---
Cardiology SOAP Progress Note Subjective: Gen weakness and malaise No focal weakness No cp or palp or syncope No shortness of breath at rest No n/v/d Objective: I&O/Vital Signs 07/26/22 07/26/22 07/26/22 07/26/22 03:00 04:00 04:00 05:00 Pulse 73 78 71 Resp 28 22 25 B/P (MAP) 143/100 (120) 123/83 (95) 133/82 (99) Pulse Ox 97 94 O2 Delivery Room Air Room Air Room Air Room Air FiO2 95 07/26/22 07/26/22 07/26/22 07/26/22 06:00 07:06 08:00 09:00 Pulse 60 70 59 55 Resp 16 21 17 B/P (MAP) 136/73 (94) 153/89 (110) 165/107 (126) Pulse Ox 95 95 O2 Delivery Room Air Room Air Room Air 07/26/22 07/26/22 07/26/22 07/26/22 09:00 10:00 11:00 12:00 Temp 36.1 Pulse 61 61 Resp 17 19 B/P (MAP) 136/88 (104) 129/81 (97) Pulse Ox 96 95 O2 Delivery Room Air Room Air Room Air FiO2 96 07/26/22 07/26/22 07/26/22 07/26/22 12:00 12:00 13:00 13:19 Pulse 57 96 51 Resp 22 30 B/P (MAP) 143/99 (114) 162/81 (108) Pulse Ox 95 97 O2 Delivery Room Air Room Air Room Air FiO2 97 07/26/22 14:00 Pulse 50 Resp 19 B/P (MAP) 153/85 (107) Pulse Ox 94 O2 Delivery Room Air 07/26/22 00:00 Intake Total 380 ml Output Total 1550 ml Balance -1170 ml Constitutional: AAO x 3, well-developed, well-nourished Respiratory: No accessory muscle use, No respiratory distress; chest expansion is symmetric, chest is bilaterally symmetric, lungs clear to auscultation, other (prolonged exp phase) Cardiovascular: regular rate-rhythm; No JVD; S1 and S2 Gastrointestional: No tender; soft, round, audible bowel sounds Extremities: no lower extremity edema bilateral Neurologic/Psychiatric: grossly intact (moves all extremities) Skin: No rash on exposed areas, No ulcerations on exposed areas Results/Procedures: Labs Laboratory Tests 07/25/22 15:36: Glucometer 90 07/25/22 20:38: Glucometer 101 07/26/22 05:13: White Blood Count 4.8, Red Blood Count 4.24L, Hemoglobin 12.9L, Hematocrit 37L, Mean Corpuscular Volume 88, Mean Corpuscular Hemoglobin 30, Mean Corpuscular Hemoglobin Concent 35, Red Cell Distribution Width 13.0, Platelet Count 138, Mean Platelet Volume 11.1, Immature Granulocyte % (Auto) 0, Neutrophils (%) (Auto) 56, Lymphocytes (%) (Auto) 32, Monocytes (%) (Auto) 11, Eosinophils (%) (Auto) 0, Basophils (%) (Auto) 1, Neutrophils # (Auto) 2.7, Lymphocytes # (Auto) 1.5, Monocytes # (Auto) 0.5, Eosinophils # (Auto) 0.0, Basophils # (Auto) 0.0, I mmature Granulocyte # (Auto) 0.0, Sodium Level 144, Potassium Level 3.3L, Chloride Level 107, Carbon Dioxide Level 22, Anion Gap 15H, Blood Urea Nitrogen 16, Creatinine 1.10, Estimat Glomerular Filtration Rate 69, BUN/Creatinine Ratio 15, Glucose Level 102, Calcium Level 8.8, Corrected Calcium 8.7, Phosphorus Level 2.7, Magnesium Level 1.8, Total Bilirubin 0.6, Aspartate Amino Transf (AST/SGOT) 38H, Alanine Aminotransferase (ALT/SGPT) 25, Alkaline Phosphatase 56, Total Protein 7.9, Albumin 4.1, Thyroid Stimulating Hormone (TSH) 2.06 07/26/22 06:14: Glucometer 121H 07/26/22 11:47: Glucometer 145H A/P: Assessment: Bradyardia - Intermittent advanced AV block seen on EKG at [facility] oon 07/25/22 - Echo on 07/25/22: LVEF normal (60-65%) - ECG at time of admission to this hospital on 07/25/22: s. dipesh (50s) and 1 deg AVB and RBBB - ECG on 07/26/22: s. dipesh (50s) with 1 deg AVB and RBBB Dizziness and weakness COVID + - management per medical services HTN HLD DM 2 Intermittent confusion - managed by the Med svce Plan: Bradycardia may be related to beta-zuri use in a man with chronic bradycardia and 1st deg AVB. Could also be related to Covid. Continue to monitor. D/c NPO COVID + - management per medical services Monitor lab closely - replace electrolytes HTN - treat with Amlodipine ADAM WARD MD FACP [facility] Jul 26, 2022 15:00
[2022-07-27 05:25] LABS: BASOPHILS % (AUTO) 1 % (0-10); EOSINOPHILS % (AUTO) 1 % (0-10); HEMATOCRIT 44 % (40-54); HEMOGLOBIN 14.7 g/dL (13.3-17.7); LYMPHOCYTES # (AUTO) 1.5 10^3/uL (1.0-4.0); LYMPHOCYTES % (AUTO) 43 % (12-44); MEAN CORPUSCULAR HEMOGLOBIN 30 pg (25-34); MEAN CORPUSCULAR HGB CONC 33 g/dL (32-36); MEAN CORPUSCULAR VOLUME 89 fL (80-99); MEAN PLATELET VOLUME 11.4 fL (9.0-12.2); MONOCYTES # (AUTO) 0.5 10^3/uL (0.0-1.0); MONOCYTES % (AUTO) 13 % (0-12); NEUTROPHILS # (AUTO) 1.5 10^3/uL (1.8-7.8); NEUTROPHILS % (AUTO) 42 % (42-75); PLATELET COUNT 131 10^3/uL (130-400); WHITE BLOOD COUNT 3.5 10^3/uL (4.3-11.0)
[2022-07-27 05:45] LABS: ALBUMIN 4.4 GM/DL (3.2-4.5)
[2022-07-27 05:46] LABS: POTASSIUM 4.1 MMOL/L (3.6-5.0)
[2022-07-27 05:47] LABS: CALCIUM 9.4 MG/DL (8.5-10.1)
[2022-07-27 05:48] LABS: TOTAL PROTEIN 8.6 GM/DL (6.4-8.2)
[2022-07-27 05:50] LABS: BILIRUBIN,TOTAL 0.9 MG/DL (0.1-1.0)
[2022-07-27 05:52] LABS: CREATININE SERUM 1.03 MG/DL (0.60-1.30)
[2022-07-27] MEDS: inSUlin ASPART (NovoLOG) 1 UNIT/0.01 ML (CHARGE PER UNIT) SC SCH ×4 (05:56→19:46)
[2022-07-27] MEDS ORDERED: NON-FORMULARY MEDICATION 1 EA EA (Multivitamin 1 EACH) PO SCH (09:00)
[2022-07-27] MEDS: DOCUSATE SODIUM 100 MG (COLACE) CAP PO SCH ×2 (09:00→19:45)
[2022-07-27] MEDS: SENNOSIDES 8.6 MG (SENOKOT) TAB PO SCH ×2 (09:00→19:45)
[2022-07-27] MEDS: MULTIVIT W/MINERALS TAB (THERAGRAN M) PO SCH (09:41)
[2022-07-27] MEDS: amLODIPine 5 MG (NORVASC) TAB PO SCH (09:41)
[2022-07-27] MEDS ORDERED: NS IV 1000 ML 1,000 ML ONE ×2 (09:42→15:53)
[2022-07-27] MEDS ORDERED: HEParin (CATH LAB) 1,000 ML IV ONE (09:42)
[2022-07-27] MEDS ORDERED: LIDOCAINE 1% INJ 20 ML VIAL ONE (09:42)
[2022-07-27] MEDS ORDERED: ceFAZolin INJECTION 1,000 MG VIAL IV NR (10:00)
--- NOTE | 2022-07-27 11:55 | Tele-ICU Progress Note ---
Subjective Date Seen by a Provider: Jul 27, 2022 Time Seen by a Provider: 11:55 Subjective/Events-last exam (Tele-ICU Physician , Progress Note ) Available chart/ vitals / labs / Images reviewed Video assessment done using teleICU camera, rest of exam as per RN Discussed with RN Events overnight : Afebrile hemodynamically stable Respiratory - ra I/O = Drips: Pressors- no Consultants: [facility] Hospital course: Consultants: Hospital course: 07/25 -from [place] [facility] -76 y/o male direct admit with 2nd degree heart block (+)COVID A/P Intermittent advanced AV block seen on EKG at [facility] - seem by cards " ECG at time of admission to this hospital: s. dipesh (50s) and 1 deg AVB and RBBB -ECHO 60% - pacemaker planned COVID + asymptomatic ( vaccinated ) - not hypoxic- no need for steroids - will not recomn RMSV with dipesh if get worse DM 2 - ISS Intermittent confusion. and ongoing hallucinations - as per RN , reports them being new and recent - b12 , tsh WNL m, CTH - no acute issues ? neurodegenerative dx - - additional eval / neuroexam and need for additional w/up ( images , lp ... - as per bedside team Lines : peripg , (Central Line Necessity Reviewed) Woodward: void OG: Nutrition: po Analgesia: Anxiety/ delirium VTE Prophylaxis: jamia 40 Stress Ulcer Prophylaxis: na Plans in collaboration with bedside consultants and IM MDs. Discussed with RN to reach out if any questions or concerns A total of 25 minutes of critical care time was devoted to this patient toda y, required to treat and/or prevent further deterioration of critical care condition ( as above ) . Sepsis Event Evaluation Height, Weight, BMI Height: '" Weight: lbs. oz. kg; 18.72 BMI Method: Exam Exam Patient acknowledged, consented, and participated in this virtual visit which was conducted using real time audio/video Vital Signs Date Time Temp Pulse Resp B/P (MAP) Pulse Ox O2 Delivery O2 Flow Rate FiO2 07/27/22 11:00 55 21 144/71 (95) 98 Room Air 07/27/22 10:00 67 31 147/100 (116) 100 Room Air 07/27/22 09:00 35 21 136/80 (98) 96 Room Air 07/27/22 08:00 Room Air 100 07/27/22 08:00 41 9 144/76 (98) 96 Room Air 07/27/22 07:28 49 07/27/22 07:00 42 21 126/67 (86) 95 Room Air 07/27/22 04:23 Room Air 92 07/27/22 04:00 39 17 113/67 (82) 94 Room Air 07/27/22 02:19 36.4 Room Air 07/27/22 01:00 54 07/27/22 00:00 40 14 105/83 (90) 94 Room Air 07/26/22 23:49 Room Air 92 07/26/22 23:48 36.6 Room Air 07/26/22 20:17 Room Air 95 07/26/22 20:00 36.4 Room Air 07/26/22 20:00 67 17 111/83 (92) 94 Room Air 07/26/22 19:00 80 07/26/22 18:00 75 17 159/89 (112) 96 Room Air 07/26/22 17:00 52 9 139/104 (116) 94 Room Air 07/26/22 16:00 Room Air 92 07/26/22 16:00 92 24 98 Room Air 07/26/22 15:00 57 20 149/90 (109) 91 Room Air 07/26/22 14:00 50 19 153/85 (107) 94 Room Air 07/26/22 13:19 51 07/26/22 13:00 96 30 162/81 (108) 97 Room Air 07/26/22 12:00 57 22 143/99 (114) 95 Room Air 07/26/22 12:00 Room Air 97 07/26/22 12:00 36.1 I & O 07/27/22 07:00 Intake Total 1370 ml Output Total 1850 ml Balance -480 ml Height & Weight Height: '" Weight: lbs. oz. kg; 18.72 BMI Method: General Appearance: No Apparent Distress, WD/WN, Chronically ill HEENT: PERRL/EOMI, Normal ENT Inspection, Pharynx Normal Neck: Full Range of Motion, Normal Inspection, Non Tender, Supple, Carotid Bruit Respiratory: Chest Non Tender, Lungs Clear, Normal Breath Sounds, No Accessory Muscle Use, No Respiratory Distress Cardiovascular: No Edema, No Gallop, No JVD, No Murmur, Normal Peripheral Pulses, Bradycardia Capillary Refill: Less Than 3 Seconds Extremity: Normal Capillary Refill, Normal Inspection, Normal Range of Motion, Non Tender, No Calf Tenderness, No Pedal Edema Neurologic/Psychiatric: Alert, Oriented x3, No Motor/Sensory Deficits, Normal Mood/Affect Skin: Normal Color, Warm/Dry Lymphatic: No Adenopathy Results Lab Laboratory Tests 07/26/22 05:13 07/27/22 05:05 Assessment/Plan Assessment/Plan 1 ABBE BARNES MD Jul 27, 2022 11:55
--- NOTE | 2022-07-27 12:13 | Progress Note ---
Subjective Date Seen by a Provider: Jul 27, 2022 Time Seen by a Provider: 12:00 Subjective/Events-last exam Doing about the same Pacemaker will be placed Isolation for COVID remains No hypoxia Objective Exam Last Set of Vital Signs Vital Signs Date Time Temp Pulse Resp B/P (MAP) Pulse Ox O2 Delivery O2 Flow Rate FiO2 07/27/22 11:00 55 21 144/71 (95) 98 Room Air 07/27/22 08:00 100 07/27/22 02:19 36.4 07/25/22 16:00 2.00 Capillary Refill : Less Than 3 Seconds I&O Intake and Output 07/27/22 00:00 Intake Total 1180 ml Output Total 2750 ml Balance -1570 ml Intake Oral 1180 ml Output Urine Total 2750 ml # Voids 1 # Bowel Movements 4 General: Alert, Oriented X3, Cooperative, No Acute Distress Lungs: Clear to Auscultation, Normal Air Movement Heart: Regular Rate, Normal S1, Normal S2, No Murmurs Psych/Mental Status: Mental Status NL, Mood NL Results Lab Laboratory Tests 07/26/22 16:55: Glucometer 108 07/26/22 19:41: Glucometer 113H 07/27/22 05:05: White Blood Count 3.5L, Red Blood Count 4.97, Hemoglobin 14.7, Hematocrit 44, Mean Corpuscular Volume 89, Mean Corpuscular Hemoglobin 30, Mean Corpuscular Hemoglobin Concent 33, Red Cell Distribution Width 13.0, Platelet Count 131, Mean Platelet Volume 11.4, Immature Granulocyte % (Auto) 0, Neutrophils (%) (Auto) 42, Lymphocytes (%) (Auto) 43, Monocytes (%) (Auto) 13H, Eosinophils (%) (Auto) 1, Basophils (%) (Auto) 1, Neutrophils # (Auto) 1.5L, Lymphocytes # (Auto) 1.5, Monocytes # (Auto) 0.5, Eosinophils # (Auto) 0.0, Basophils # (Auto) 0.0, Immature Granulocyte # (Auto) 0.0, Sodium Level 141, Potassium Level 4.1, Chloride Level 105, Carbon Dioxide Level 22, Anion Gap 14, Blood Urea Nitrogen 15, Creatinine 1.03, Estimat Glomerular Filtration Rate 75, BUN/Creatinine Ratio 15, Glucose Level 111H, Calcium Level 9.4, Corrected Calcium 9.1, Magnesium Level 2.0, Total Bilirubin 0.9, Aspartate Amino Transf (AST/SGOT) 35H, Alanine Aminotransferase (ALT/SGPT) 23, Alkaline Phosphatase 66, Total Protein 8.6H, Albumin 4.4 Assessment/Plan Assessment/Plan Assess & Plan/Chief Complaint Assessment: Symptomatic bradycardia with heart block in need of pacemaker today HTN HLP DM COVID Plan: Pacemaker Diagnosis/Problems Diagnosis/Problems (1) Heart block (2) COVID (3) Hallucinations (4) Former smoker Clinical Quality Measures Admission Status Admission Dx Assessment: Severe synptomatic bradycardia COVID HTN HLP DM Hallucinations Plan: Monitor closely Temporary pacemaker Cardiology consultation MANJIT GIRALDO DO Jul 27, 2022 12:13
[2022-07-27] MEDS ORDERED: NS IV 1000 ML 1,000 ML IV ONE (15:00)
[2022-07-27] MEDS: ENOXAPARIN INJECTION 30 MG/0.3 ML SYR SC SCH (15:42)
[2022-07-27] MEDS ORDERED: ceFAZolin INJECTION 1,000 MG ONE (15:53)
[2022-07-27] MEDS ORDERED: fentaNYL INJ 100 MCG/2 ML AMP ONE ×2 (15:53→17:03)
[2022-07-27] MEDS ORDERED: MIDAZOLAM 5 MG/5 ML (VERSED) VIAL ONE ×2 (15:53→17:03)
[2022-07-27] MEDS ORDERED: diphenhydrAMINE 50 MG/ML INJ (BENADRYL) ONE (17:02)
--- NOTE | 2022-07-27 18:16 | Progress Note - Cardiology ---
Cardiology SOAP Progress Note Subjective: Malaise and dizziness No syncope No cp or palp or swelling Shortness of breath with activity Objective: I&O/Vital Signs 07/27/22 07/27/22 07/27/22 07/27/22 07:00 07:28 08:00 08:00 Pulse 42 49 41 Resp 21 9 B/P (MAP) 126/67 (86) 144/76 (98) Pulse Ox 95 96 O2 Delivery Room Air Room Air Room Air FiO2 100 07/27/22 07/27/22 07/27/22 07/27/22 09:00 10:00 11:00 12:00 Pulse 35 67 55 Resp 21 31 21 B/P (MAP) 136/80 (98) 147/100 (116) 144/71 (95) Pulse Ox 96 100 98 O2 Delivery Room Air Room Air Room Air Room Air FiO2 98 07/27/22 07/27/22 07/27/22 07/27/22 12:00 12:49 13:00 14:00 Pulse 56 62 47 60 Resp 21 17 18 B/P (MAP) 116/83 (94) 144/86 (105) 158/98 (118) Pulse Ox 95 98 100 O2 Delivery Room Air Room Air Room Air 07/27/22 07/27/22 15:00 16:00 Pulse 63 Resp 18 B/P (MAP) Pulse Ox 100 O2 Delivery Room Air Room Air FiO2 95 07/27/22 00:00 Intake Total 800 ml Output Total 1000 ml Balance -200 ml Constitutional: AAO x 3, well-developed, well-nourished Respiratory: No accessory muscle use, No respiratory distress; chest expansion is symmetric, chest is bilaterally symmetric, lungs clear to auscultation, other (prolonged exp phase) Cardiovascular: regular rate-rhythm; No JVD; S1 and S2 Gastrointestional: No tender; soft, round, audible bowel sounds Extremities: no lower extremity edema bilateral Neurologic/Psychiatric: grossly intact (moves all extremities) Skin: No rash on exposed areas, No ulcerations on exposed areas Results/Procedures: Labs Laboratory Tests 07/26/22 19:41: Glucometer 113H 07/27/22 05:05: White Blood Count 3.5L, Red Blood Count 4.97, Hemoglobin 14.7, Hematocrit 44, Mean Corpuscular Volume 89, Mean Corpuscular Hemoglobin 30, Mean Corpuscular Hemoglobin Concent 33, Red Cell Distribution Width 13.0, Platelet Count 131, Mean Platelet Volume 11.4, Immature Granulocyte % (Auto) 0, Neutrophils (%) (Auto) 42, Lymphocytes (%) (Auto) 43, Monocytes (%) (Auto) 13H, Eosinophils (%) (Auto) 1, Basophils (%) (Auto) 1, Neutrophils # (Auto) 1.5L, Lymphocytes # (Auto) 1.5, Monocytes # (Auto) 0.5, Eosinophils # (Auto) 0.0, Basophils # (Auto) 0.0, Immature Granulocyte # (Auto) 0.0, Sodium Level 141, Potassium Level 4.1, Chloride Level 105, Carbon Dioxide Level 22, Anion Gap 14, Blood Urea Nitrogen 15, Creatinine 1.03, Estimat Glomerular Filtration Rate 75, BUN/Creatinine Ratio 15, Glucose Level 111H, Calcium Level 9.4, Corrected Calcium 9.1, Magnesium Level 2.0, Total Bilirubin 0.9, Aspartate Amino Transf (AST/SGOT) 35H, Alanine Aminotransferase (ALT/SGPT) 23, Alkaline Phosphatase 66, Total Protein 8.6H, Albumin 4.4 07/27/22 12:54: Glucometer 124H 07/27/22 15:40: Glucometer 96 A/P: Assessment: Bradyardia - Intermittent advanced AV block seen on EKG at [facility] [place] oon 07/25/22 - Echo on 07/25/22: LVEF normal (60-65%) - continuing intermittent advanced AV block despite cessation of the low dose of beta-zuri that he was on since the morning of 07/25/22 - dual ch pacemaker (Medtronic) implantation on 07/27/22 Dizziness and weakness COVID + - management per medical services HTN HLD DM 2 Intermittent confusion - managed by the Med svce Plan: Due to continuing, intermittent Mobitz II and 3rd deg AV block, we proceeded with pacemaker implantation today after having obtained informed consent COVID + - management per medical services Monitor lab closely - replace electrolytes HTN - treat with Amlodipine ADAM WARD MD [facility] Jul 27, 2022 18:16
[2022-07-27] MEDS ORDERED: PATIENT MAY USE OWN MEDS, ALL PO SCH (18:30)
[2022-07-27] MEDS ORDERED: NS IV 1000 ML 1,000 ML IV SCH (18:30)
[2022-07-27] MEDS ORDERED: oxyCODONE/APAP 5/325MG (PERCOCET 5) TABLET PO PRN (18:30)
--- NOTE | 2022-07-27 18:47 | Diagnostic Imaging Report ---
EXAMINATION: Chest radiograph, portable AP view. DATE: 07/27/2022 6:41 PM INDICATION: 76-year-old male, pacemaker placement. COMPARISON: July 26, 2022. FINDINGS: There is a left-sided cardiac assist device with leads. Heart size and mediastinal contours are unchanged. There is no identified pneumothorax. There is no large pleural effusion. There is no identified interval focal airspace consolidation. There is a right upper lobe probable granuloma. IMPRESSION: No identified acute cardiopulmonary abnormality. Dictated by: Dictated on workstation # [id number]
[2022-07-27] MEDS: ceFAZolin INJECTION 500 MG in NS (IVPB) 50 ML IV SCH (20:36)
--- NOTE | 2022-07-28 03:05 | OPERATIVE REPORT ---
DATE OF SERVICE: 07/27/2022 PREOPERATIVE DIAGNOSIS: Intermittent advanced heart block (Mobitz two and third-degree). POSTOPERATIVE DIAGNOSIS: Intermittent advanced heart block (Mobitz two and third-degree). PROCEDURE: Dual chamber pacemaker implantation. ESTIMATED BLOOD LOSS: Less than 10 mL. The patient is a 76-year-old gentleman who presented with dizziness, weakness and near syncope. He was found to have marked bradycardia, and intermittent second-degree, type 2 and 30-degree atrioventricular block in the emergency room at the [facility] on 07/25/2022. He was in a very low dose of beta blockers. This was discontinued. He was transferred to this hospital. He remained in intermittent advanced atrioventricular block despite cessation of the lower dose of beta zuri that he was on. This continued for more than that. This was continued for more than 48 hours after the cessation of the beta blockers. Accordingly, a permanent dual chamber pacemaker implantation was carried out after having obtained an informed consent. DESCRIPTION OF PROCEDURE: He was brought to the cardiac catheterization laboratory in a fasting state. The left prepectoral area was prepared and draped in the usual sterile fashion. Lidocaine 1% was used for local anesthesia. Modified Seldinger technique was used to advance two guidewires into the left subclavian vein and the tip of the wires were placed in the right atrium. The sharp and blunt dissection was used to make a pacemaker pocket. The pocket was packed with saline gauze. The guidewires were used to advance sheaths and the wires were removed. The sheaths were used to advance leads and the sheaths were removed. Both leads are active fixation lead. One was placed at the right ventricular apex. The lead was placed at the right atrial appendage. All lead manipulation was carried out under fluoroscopy. The leads were then attached to a dual chamber pacemaker. The saline gauze was removed from the pocket and the pocket was thoroughly irrigated with normal saline. The pacemaker was placed in a TYRX pocket and all of this was placed in the pacemaker pocket and the pacemaker pocket was closed in 2 layers using 3.0 Vicryl. The leads had been sutured to the prepectoral fascia using sleeves and 0 Ethibond. Good pacemaker and sensing thresholds were obtained. R waves are measured at 8.9 millivolts and P waves were measured at 3.75 millivolts at the time of lead insertion. The lead impedance for the right atrium is 437 ohms and for the ventricle was 1216 ohms. The capture threshold for the atrium was 0.5 volts at 0.4 milliseconds and was 0.75 volts at 0.4 milliseconds for the ventricle. There was no diaphragmatic stimulation at 10 volts. The patient tolerated the procedure well. The atrial lead is a Medtronic model 073384-81 with serial #[id number]. The ventricular lead is Medtronic model 501265-65 and the serial number is [id number]. The pacemaker is Medtronic model C84BM24 with serial number [id number]. Job ID: [id number] DocumentID: [id number] Dictated Date: 07/27/2022 18:23:48 Research Executive Date: 07/28/2022 03:04:46 Dictated By: ADAM WARD MD, MA, FACP, FACC,
[2022-07-28 05:30] LABS: BASOPHILS % (AUTO) 1 % (0-10); EOSINOPHILS % (AUTO) 1 % (0-10); HEMATOCRIT 42 % (40-54); LYMPHOCYTES # (AUTO) 1.3 10^3/uL (1.0-4.0); LYMPHOCYTES % (AUTO) 30 % (12-44); MEAN CORPUSCULAR HEMOGLOBIN 30 pg (25-34); MEAN CORPUSCULAR HGB CONC 34 g/dL (32-36); MEAN CORPUSCULAR VOLUME 88 fL (80-99); MEAN PLATELET VOLUME 11.2 fL (9.0-12.2); MONOCYTES # (AUTO) 0.4 10^3/uL (0.0-1.0); MONOCYTES % (AUTO) 9 % (0-12); NEUTROPHILS # (AUTO) 2.6 10^3/uL (1.8-7.8); NEUTROPHILS % (AUTO) 59 % (42-75); PLATELET COUNT 124 10^3/uL (130-400); WHITE BLOOD COUNT 4.3 10^3/uL (4.3-11.0)
[2022-07-28 05:34] LABS: POTASSIUM 3.7 MMOL/L (3.6-5.0)
[2022-07-28 05:35] LABS: CALCIUM 8.6 MG/DL (8.5-10.1)
[2022-07-28 05:36] LABS: TOTAL PROTEIN 7.7 GM/DL (6.4-8.2)
[2022-07-28 05:38] LABS: BILIRUBIN,TOTAL 0.8 MG/DL (0.1-1.0)
[2022-07-28 05:40] LABS: CREATININE SERUM 0.88 MG/DL (0.60-1.30)
[2022-07-28 05:43] LABS: MAGNESIUM 1.9 MG/DL (1.6-2.4)
[2022-07-28] MEDS: MULTIVIT W/MINERALS TAB (THERAGRAN M) PO SCH (05:55)
[2022-07-28] MEDS: ceFAZolin INJECTION 500 MG in NS (IVPB) 50 ML IV SCH ×3 (05:55→20:31)
[2022-07-28] MEDS: inSUlin ASPART (NovoLOG) 1 UNIT/0.01 ML (CHARGE PER UNIT) SC SCH ×4 (05:55→20:42)
[2022-07-28] MEDS: amLODIPine 5 MG (NORVASC) TAB PO SCH (09:12)
[2022-07-28] MEDS: SENNOSIDES 8.6 MG (SENOKOT) TAB PO SCH ×2 (09:12→20:42)
[2022-07-28] MEDS: DOCUSATE SODIUM 100 MG (COLACE) CAP PO SCH ×2 (09:13→20:42)
--- NOTE | 2022-07-28 10:03 | Tele-ICU Progress Note ---
Subjective Date Seen by a Provider: Jul 28, 2022 Time Seen by a Provider: 10:03 Subjective/Events-last exam (Tele-ICU Physician , Progress Note ) Available chart/ vitals / labs / Images reviewed Video assessment done using teleICU camera, rest of exam as per RN Discussed with RN Events overnight : Afebrile hemodynamically stable Respiratory - ra I/O = Drips: Pressors- no Consultants: Hospital course: 07/25 -from [place] [facility] -76 y/o male direct admit with 2nd degree heart block (+)COVID A/P Intermittent advanced heart block (Mobitz two and third-degree). =s/p Dual chamber pacemaker implantation. 07/27 -ECHO 60% COVID +, asymptomatic ( vaccinated ) - not hypoxic- no need for steroids - will not recom RMSV with dipesh if get worse DM 2 - ISS Intermittent confusion at night , and ongoing hallucinations improved - b12 , tsh WNL m, CTH - no acute issues ? neurodegenerative dx - - additiona l eval / neuroexam and need for additional w/up ( images , lp ... - as per bedside team Lines : , (Central Line Necessity Reviewed) Woodward: OG: Nutrition: Analgesia: Anxiety/ delirium VTE Prophylaxis: jamia 40 Stress Ulcer Prophylaxis: na Plans in collaboration with bedside consultants and IM MDs. Discussed with RN to reach out if any questions or concerns A total of 10 minutes of critical care time was devoted to this patient today, required to treat and/or prevent further deterioration of critical care condition ( as above ) . Sepsis Event Evaluation Height, Weight, BMI Height: '" Weight: lbs. oz. kg; 18.77 BMI Method: Exam Exam Patient acknowledged, consented, and participated in this virtual visit which was conducted using real time audio/video Vital Signs Date Time Temp Pulse Resp B/P (MAP) Pulse Ox O2 Delivery O2 Flow Rate FiO2 07/28/22 08:22 36.3 07/28/22 08:00 63 37 144/97 (113) 96 Room Air 07/28/22 08:00 96 Room Air 07/28/22 07:04 60 07/28/22 04:46 96 Room Air 07/28/22 04:39 36.0 07/28/22 04:26 60 10 165/86 (112) 95 Room Air 07/28/22 04:00 59 10 154/107 (120) 94 Room Air 07/28/22 01:00 60 07/28/22 00:00 96 Room Air 07/28/22 00:00 Room Air 07/28/22 00:00 60 13 134/76 (95) 93 Room Air 07/27/22 23:52 36.4 07/27/22 23:00 61 14 151/76 (103) 95 Room Air 07/27/22 22:00 76 34 135/82 (106) 93 Room Air 07/27/22 21:00 131 26 138/89 (121) 96 Room Air 07/27/22 20:00 92 123/101 (102) 95 Room Air 07/27/22 20:00 96 Room Air 07/27/22 20:00 36.1 Room Air 07/27/22 19:00 60 07/27/22 19:00 60 10 130/76 (98) 92 Room Air 07/27/22 18:39 63 07/27/22 18:00 70 17 121/82 (95) 96 Room Air 07/27/22 16:00 60 17 151/77 (101) 96 Room Air 07/27/22 16:00 Room Air 95 07/27/22 15:00 63 18 100 Room Air 07/27/22 14:00 60 18 158/98 (118) 100 Room Air 07/27/22 13:00 47 17 144/86 (105) 98 Room Air 07/27/22 12:49 62 07/27/22 12:00 56 21 116/83 (94) 95 Room Air 07/27/22 12:00 Room Air 98 07/27/22 11:00 55 21 144/71 (95) 98 Room Air I & O 07/28/22 07:00 Intake Total 2825 ml Output Total 1625 ml Balance 1200 ml Height & Weight Height: '" Weight: lbs. oz. kg; 18.77 BMI Method: General Appearance: No Apparent Distress, WD/WN, Chronically ill HEENT: PERRL/EOMI, Normal ENT Inspection, Pharynx Normal Neck: Full Range of Motion, Normal Inspection, Non Tender, Supple, Carotid Bruit Respiratory: Chest Non Tender, Lungs Clear, Normal Breath Sounds, No Accessory Muscle Use, No Respiratory Distress Cardiovascular: No Edema, No Gallop, No JVD, No Murmur, Normal Peripheral Pulses, Bradycardia Capillary Refill: Less Than 3 Seconds Extremity: Normal Capillary Refill, Normal Inspection, Normal Range of Motion, Non Tender, No Calf Tenderness, No Pedal Edema Neurologic/Psychiatric: Alert, Oriented x3, No Motor/Sensory Deficits, Normal Mood/Affect Skin: Normal Color, Warm/Dry Lymphatic: No Adenopathy Results Lab Laboratory Tests 07/27/22 05:05 07/28/22 05:00 Assessment/Plan Assessment/Plan 1 ABBE BARNES MD Jul 28, 2022 10:03
--- NOTE | 2022-07-28 14:55 | Progress Note ---
CHRISTA ERVIN 07/28/22 1455: Subjective Date Seen by a Provider: Jul 28, 2022 Time Seen by a Provider: 09:00 Subjective/Events-last exam Patient was sitting up in his bed this morning in good spirits following the successful placement of a pacemaker for his AFib yesterday. He denies having any SOA, chest pain, N/V, sweats or chills currently. He feels well Review of Systems General: No Chills, No Night Sweats Pulmonary: No Dyspnea, No Cough Gastrointestinal: No: Nausea, Vomiting, Abdominal Pain Objective Exam Last Set of Vital Signs Vital Signs Date Time Temp Pulse Resp B/P (MAP) Pulse Ox O2 Delivery O2 Flow Rate FiO2 07/28/22 13:00 60 07/28/22 12:00 23 156/87 (110) 94 Room Air 07/28/22 08:22 36.3 07/27/22 16:00 95 07/25/22 16:00 2.00 Capillary Refill : Less Than 3 Seconds I&O Intake and Output 07/28/22 00:00 Intake Total 2045 ml Output Total 1350 ml Balance 695 ml Intake Oral 990 ml IV Total 1055 ml Output Urine Total 1350 ml # Voids 1 # Bowel Movements 1 General: Alert, Oriented X3, No Acute Distress HEENT: PERRLA, EOMI, Mucous Memb Moist/Crescent Neck: Supple Lungs: Clear to Auscultation Heart: Regular Rate, No Murmurs Abdomen: Normal Bowel Sounds, Soft, No Tenderness Extremities: No Edema, Normal Pulses Neuro: Normal Speech Results Lab Laboratory Tests 07/27/22 15:40: Glucometer 96 07/27/22 19:42: Glucometer 99 07/28/22 05:00: White Blood Count 4.3, Red Blood Count 4.70, Hemoglobin 14.0, Hematocrit 42, Mean Corpuscular Volume 88, Mean Corpuscular Hemoglobin 30, Mean Corpuscular Hemoglobin Concent 34, Red Cell Distribution Width 12.8, Platelet Count 124L, Mean Platelet Volume 11.2, Immature Granulocyte % (Auto) 0, Neutrophils (%) (Auto) 59, Lymphocytes (%) (Auto) 30, Monocytes (%) (Auto) 9, Eosinophils (%) (Auto) 1, Basophils (%) (Auto) 1, Neutrophils # (Auto) 2.6, Lymphocytes # (Auto) 1.3, Monocytes # (Auto) 0.4, Eosinophils # (Auto) 0.0, Basophils # (Auto) 0.0, Immature Granulocyte # (Auto) 0.0, Sodium Level 138, Potassium Level 3.7, Chloride Level 107, Carbon Dioxide Level 20L, Anion Gap 11, Blood Urea Nitrogen 16, Creatinine 0.88, Estimat Glomerular Filtration Rate 89, BUN/Creatinine Ratio 18, Glucose Level 100, Calcium Level 8.6, Corrected Calcium 8.6, Magnesium Level 1.9, Total Bilirubin 0.8, Aspartate Amino Transf (AST/SGOT) 31, Alanine Aminotransferase (ALT/SGPT) 21, Alkaline Phosphatase 61, Total Protein 7.7, Albumin 4.0 07/28/22 10:20: Glucometer 108 Assessment/Plan Assessment/Plan Assess & Plan/Chief Complaint Heart Block - s/p dual chamber pacemaker placement on 07/27 Cardiology following Telemetry Currently receiving IV Cefazolin Covid Positive CXR yesterday was unremarkable Tylenol for antipyretic PRN Lovenox 40mg SC daily for DVT prophylaxis Monitor O2 - no requirements currently IV fluids Monitor mental status - seems to be improving Altered Mental Status Has been improving over last few days CT head 07/26 showed no acute abnormalities Possible baseline dementia Hyperlipidemia Atorvastatin 20mg HS PO Hypokalemia Resolved Diabetes Insulin aspart ACHS OK VIVIEN GIRALDO DO 07/29/22 0610: Assessment/Plan Assessment/Plan Assess & Plan/Chief Complaint Doing much better Monitor closely Discharge home tomorrow Supervisory-Addendum Brief Verification & Attestation Participated in pt care: history, MDM, physical Personally performed: exam, history, MDM, supervision of care Care discussed with: Medical Student Procedures: n/a Results interpretation: Verified all documentation Verification and Attestation of Medical Student E/M Service A medical student performed and documented this service in my presence. I reviewed and verified all information documented by the medical student and made modifications to such information, when appropriate. I personally performed the physical exam and medical decision making. Vivien Giraldo, Jul 29, 2022,06:09 CHRISTA ERVIN Jul 28, 2022 14:55 VIVIEN GIRALDO DO Jul 29, 2022 06:10
[2022-07-28] MEDS: ENOXAPARIN INJECTION 30 MG/0.3 ML SYR SC SCH (15:06)
[2022-07-28 16:29] VITALS: BP 176/90
--- NOTE | 2022-07-28 16:41 | Progress Note - Cardiology ---
Cardiology SOAP Progress Note Subjective: No cp or palp or syncope No n/v/d Gen weakness improving No swelling No shortness of breath at rest Objective: I&O/Vital Signs 07/28/22 07/28/22 07/28/22 07/28/22 04:39 04:46 07:04 08:00 Temp 36.0 Pulse 60 Pulse Ox 96 96 O2 Delivery Room Air Room Air 07/28/22 07/28/22 07/28/22 07/28/22 08:00 08:22 12:00 12:00 Temp 36.3 Pulse 63 63 Resp 37 23 B/P (MAP) 144/97 (113) 156/87 (110) Pulse Ox 96 96 94 O2 Delivery Room Air Room Air Room Air 07/28/22 07/28/22 13:00 16:29 Temp 36.3 Pulse 60 63 Resp 18 B/P (MAP) 176/90 (118) Pulse Ox 96 O2 Delivery Room Air 07/28/22 00:00 Intake Total 1355 ml Output Total 600 ml Balance 755 ml Constitutional: AAO x 3, well-developed, well-nourished Respiratory: No accessory muscle use, No respiratory distress; chest expansion is symmetric, chest is bilaterally symmetric, lungs clear to auscultation, other (prolonged exp phase) Cardiovascular: regular rate-rhythm; No JVD; S1 and S2 Gastrointestional: No tender; soft, round, audible bowel sounds Extremities: no lower extremity edema bilateral Neurologic/Psychiatric: grossly intact (moves all extremities) Skin: No rash on exposed areas, No ulcerations on exposed areas Results/Procedures: Labs Laboratory Tests 07/27/22 19:42: Glucometer 99 07/28/22 05:00: White Blood Count 4.3, Red Blood Count 4.70, Hemoglobin 14.0, Hematocrit 42, Mean Corpuscular Volume 88, Mean Corpuscular Hemoglobin 30, Mean Corpuscular Hemoglobin Concent 34, Red Cell Distribution Width 12.8, Platelet Count 124L, Mean Platelet Volume 11.2, Immature Granulocyte % (Auto) 0, Neutrophils (%) (Auto) 59, Lymphocytes (%) (Auto) 30, Monocytes (%) (Auto) 9, Eosinophils (%) (Auto) 1, Basophils (%) (Auto) 1, Neutrophils # (Auto) 2.6, Lymphocytes # (Auto) 1.3, Monocytes # (Auto) 0.4, Eosinophils # (Auto) 0.0, Basophils # (Auto) 0.0, Immature Granulocyte # (Auto) 0.0, Sodium Level 138, Potassium Level 3.7, Chlori de Level 107, Carbon Dioxide Level 20L, Anion Gap 11, Blood Urea Nitrogen 16, C reatinine 0.88, Estimat Glomerular Filtration Rate 89, BUN/Creatinine Ratio 18, Glucose Level 100, Calcium Level 8.6, Corrected Calcium 8.6, Magnesium Level 1.9, Total Bilirubin 0.8, Aspartate Amino Transf (AST/SGOT) 31, Alanine Aminotransferase (ALT/SGPT) 21, Alkaline Phosphatase 61, Total Protein 7.7, Albumin 4.0 07/28/22 10:20: Glucometer 108 07/28/22 16:24: Glucometer 122H Laboratory Tests 07/27/22 05:05 07/28/22 05:00 A/P: Assessment: Bradyardia - Intermittent advanced AV block seen on EKG at [facility] on 07/25/22 - Echo on 07/25/22: LVEF normal (60-65%) - continuing intermittent advanced AV block despite cessation of the low dose of beta-zuri that he was on since the morning of 07/25/22 - dual ch pacemaker (Medtronic) implantation on 07/27/22. Functioning normally on interrogation of 07/28/22 Dizziness and weakness COVID + - management per medical services HTN HLD DM 2 Intermittent confusion - managed by the Med svce Plan: COVID + - management per medical services Monitor lab closely - replace electrolytes HTN - treat with Amlodipine ADAM WARD MD FACP [facility] CCDS Jul 28, 2022 16:41
[2022-07-28 19:45] VITALS: BP 186/92
[2022-07-28 20:26] VITALS: BP 145/83
[2022-07-28 23:35] VITALS: BP 159/88
[2022-07-29 05:01] VITALS: BP 139/77
[2022-07-29] MEDS: inSUlin ASPART (NovoLOG) 1 UNIT/0.01 ML (CHARGE PER UNIT) SC SCH ×2 (05:01→11:49)
[2022-07-29 06:27] LABS: EOSINOPHILS % (AUTO) 0 % (0-10); MEAN CORPUSCULAR HEMOGLOBIN 30 pg (25-34); MEAN CORPUSCULAR HGB CONC 34 g/dL (32-36)
[2022-07-29 06:29] LABS: BASOPHILS % (AUTO) 0 % (0-10); HEMATOCRIT 41 % (40-54); HEMOGLOBIN 14.1 g/dL (13.3-17.7); LYMPHOCYTES # (AUTO) 1.3 10^3/uL (1.0-4.0); LYMPHOCYTES % (AUTO) 25 % (12-44); MEAN CORPUSCULAR VOLUME 88 fL (80-99); MEAN PLATELET VOLUME 11.3 fL (9.0-12.2); MONOCYTES # (AUTO) 0.6 10^3/uL (0.0-1.0); MONOCYTES % (AUTO) 11 % (0-12); NEUTROPHILS # (AUTO) 3.3 10^3/uL (1.8-7.8); NEUTROPHILS % (AUTO) 63 % (42-75); PLATELET COUNT 118 10^3/uL (130-400); WHITE BLOOD COUNT 5.2 10^3/uL (4.3-11.0)
[2022-07-29 06:40] LABS: POTASSIUM 3.4 MMOL/L (3.6-5.0)
[2022-07-29 06:41] LABS: CALCIUM 8.8 MG/DL (8.5-10.1)
[2022-07-29 06:42] LABS: TOTAL PROTEIN 7.8 GM/DL (6.4-8.2)
[2022-07-29 06:44] LABS: BILIRUBIN,TOTAL 0.9 MG/DL (0.1-1.0)
[2022-07-29 06:46] LABS: CREATININE SERUM 0.87 MG/DL (0.60-1.30)
[2022-07-29] MEDS: amLODIPine 5 MG (NORVASC) TAB PO SCH (08:07)
[2022-07-29] MEDS: DOCUSATE SODIUM 100 MG (COLACE) CAP PO SCH (08:07)
[2022-07-29] MEDS: MULTIVIT W/MINERALS TAB (THERAGRAN M) PO SCH (08:07)
[2022-07-29] MEDS: SENNOSIDES 8.6 MG (SENOKOT) TAB PO SCH (08:07)
[2022-07-29 08:09] VITALS: BP 179/84
[2022-07-29] MEDS ORDERED: AMLO-251 PO (09:24)
[2022-07-29] MEDS ORDERED: CEFU500T63 PO (09:26)
[2022-07-29] MEDS ORDERED: ceFAZolin INJECTION 500 MG in NS (IVPB) 50 ML IV ONE (09:30)
[2022-07-29] MEDS ORDERED: amLODIPine 5 MG (NORVASC) TAB PO NR (09:30)
[2022-07-29 12:00] VITALS: BP 139/81
--- NOTE | 2022-07-29 12:34 | Discharge Summary ---
Diagnosis/Chief Complaint Date of Admission Jul 25, 2022 at 14:03 Date of Discharge Discharge Date: Jul 29, 2022 Discharge Diagnosis Assessment: Severe synptomatic bradycardia COVID HTN HLP DM Hallucinations Reason Hospital Visit CC: Heart block with bradycardia and COVID HPI: This is a 76 yo male patient who moved her 1 year ago and still kept his PCP in [facility] who has a h/o DM, HTN, HLP who presented to [facility] for higher level of care from [facility] due to bradycardia and heart block with COVID. Currently he is doing well but still a bit confused and hallucinating. Discharge Summary Discharge Physical Examination Allergies: Coded Allergies: No Known Drug Allergies (Unverified , 07/25/22) Vitals & I&Os Vital Signs Date Time Temp Pulse Resp B/P (MAP) Pulse Ox O2 Delivery O2 Flow Rate FiO2 07/29/22 13:20 36.8 81 18 139/81 95 Room Air 2.00 07/27/22 16:00 95 General Appearance: Alert, Oriented X3, Cooperative Respiratory: Clear to Auscultation Cardiovascular: Regular Rate Psych/Mental Status: Mental Status NL Hospital Course Was the Problem List Reviewed?: Yes Manpreet is a 76yo male w/PMH of HTN, HLD and diabetes who was transferred here from [facility] after an EKG showed intermittent advanced AV block and bradycardia. He went to [facility] due to weakness and dizziness on 07/25 and was transfered here same day. He was bradycardic and COVID + on arrival. Cardiology was consulted and followed him throughout the stay. He was taking a beta zuri which was discontinued and after 48 hours his bradycardia & heart block had not resolved. He was taken to surgery for placement of a dual chamber pacemaker which was done without complication. His bradycardia resolved, weakness and shortness of breath both improved. He is COVID + but has minimal symptoms and is not requiring any oxygen. Manpreet will follow up with cardiology per their recommendations. Labs (last 24 hrs) Laboratory Tests 07/25/22 15:36: Glucometer 90 07/25/22 20:38: Glucometer 101 07/26/22 05:13: White Blood Count 4.8, Red Blood Count 4.24L, Hemoglobin 12.9L, Hematocrit 37L, Mean Corpuscular Volume 88, Mean Corpuscular Hemoglobin 30, Mean Corpuscular Hemoglobin Concent 35, Red Cell Distribution Width 13.0, Platelet Count 138, Me an Platelet Volume 11.1, Immature Granulocyte % (Auto) 0, Neutrophils (%) (Auto) 56, Lymphocytes (%) (Auto) 32, Monocytes (%) (Auto) 11, Eosinophils (%) (Auto) 0, Basophils (%) (Auto) 1, Neutrophils # (Auto) 2.7, Lymphocytes # (Auto) 1.5, Monocytes # (Auto) 0.5, Eosinophils # (Auto) 0.0, Basophils # (Auto) 0.0, Immature Granulocyte # (Auto) 0.0, Sodium Level 144, Potassium Level 3.3L, Chloride Level 107, Carbon Dioxide Level 22, Anion Gap 15H, Blood Urea Nitrogen 16, Creatinine 1.10, Estimat Glomerular Filtration Rate 69, BUN/Creatinine Ratio 15, Glucose Level 102, Calcium Level 8.8, Corrected Calcium 8.7, Phosphorus Level 2.7, Magnesium Level 1.8, Total Bilirubin 0.6, Aspartate Amino Transf (AST/SGOT) 38H, Alanine Aminotransferase (ALT/SGPT) 25, Alkaline Phosphatase 56, Total Protein 7.9, Albumin 4.1, Vitamin B12 Level 404, Thyroid Stimulating Hormone (TSH) 2.06 07/26/22 06:14: Glucometer 121H 07/26/22 11:47: Glucometer 145H 07/26/22 16:55: Glucometer 108 07/26/22 19:41: Glucometer 113H 07/27/22 05:05: White Blood Count 3.5L, Red Blood Count 4.97, Hemoglobin 14.7, Hematocrit 44, Mean Corpuscular Volume 89, Mean Corpuscular Hemoglobin 30, Mean Corpuscular Hemoglobin Concent 33, Red Cell Distribution Width 13.0, Platelet Count 131, Mean Platelet Volume 11.4, Immature Granulocyte % (Auto) 0, Neutrophils (%) (Auto) 42, Lymphocytes (%) (Auto) 43, Monocytes (%) (Auto) 13H, Eosinophils (%) (Auto) 1, Basophils (%) (Auto) 1, Neutrophils # (Auto) 1.5L, Lymphocytes # (Auto) 1.5, Monocytes # (Auto) 0.5, Eosinophils # (Auto) 0.0, Basophils # (Auto) 0.0, Immature Granulocyte # (Auto) 0.0, Sodium Level 141, Potassium Level 4.1, Chloride Level 105, Carbon Dioxide Level 22, Anion Gap 14, Blood Urea Nitrogen 15, Creatinine 1.03, Estimat Glomerular Filtration Rate 75, BUN/Creatinine Ratio 15, Glucose Level 111H, Calcium Level 9.4, Corrected Calcium 9.1, Magnesium Level 2.0, Total Bilirubin 0.9, Aspartate Amino Transf (AST/SGOT) 35H, Alanine Aminotransferase (ALT/SGPT) 23, Alkaline Phosphatase 66, Total Protein 8.6H, Albumin 4.4 07/27/22 12:54: Glucometer 124H 07/27/22 15:40: Glucometer 96 07/27/22 19:42: Glucometer 99 07/28/22 05:00: White Blood Count 4.3, Red Blood Count 4.70, Hemoglobin 14.0, Hematocrit 42, Mean Corpuscular Volume 88, Mean Corpuscular Hemoglobin 30, Mean Corpuscular Hemoglobin Concent 34, Red Cell Distribution Width 12.8, Platelet Count 124L, Mean Platelet Volume 11.2, Immature Granulocyte % (Auto) 0, Neutrophils (%) (Auto) 59, Lymphocytes (%) (Auto) 30, Monocytes (%) (Auto) 9, Eosinophils (%) (Auto) 1, Basophils (%) (Auto) 1, Neutrophils # (Auto) 2.6, Lymphocytes # (Auto) 1.3, Monocytes # (Auto) 0.4, Eosinophils # (Auto) 0.0, Basophils # (Auto) 0.0, Immature Granulocyte # (Auto) 0.0, Sodium Level 138, Potassium Level 3.7, Chloride Level 107, Carbon Dioxide Level 20L, Anion Gap 11, Blood Urea Nitrogen 16, Creatinine 0.88, Estimat Glomerular Filtration Rate 89, BUN/Creatinine Ratio 18, Glucose Level 100, Calcium Level 8.6, Corrected Calcium 8.6, Magnesium Level 1.9, Total Bilirubin 0.8, Aspartate Amino Transf (AST/SGOT) 31, Alanine Aminotransferase (ALT/SGPT) 21, Alkaline Phosphatase 61, Total Protein 7.7, Albumin 4.0 07/28/22 05:58: Glucometer 110 07/28/22 10:20: Glucometer 108 07/28/22 16:24: Glucometer 122H 07/28/22 20:01: Glucometer 102 07/29/22 04:58: Glucometer 114H 07/29/22 06:16: White Blood Count 5.2, Red Blood Count 4.68, Hemoglobin 14.1, Hematocrit 41, Mean Corpuscular Volume 88, Mean Corpuscular Hemoglobin 30, Mean Corpuscular Hemoglobin Concent 34, Red Cell Distribution Width 13.0, Platelet Count 118L, Mean Platelet Volume 11.3, Immature Granulocyte % (Auto) 0, Neutrophils (%) (Auto) 63, Lymphocytes (%) (Auto) 25, Monocytes (%) (Auto) 11, Eosinophils (%) (Auto) 0, Basophils (%) (Auto) 0, Neutrophils # (Auto) 3.3, Lymphocytes # (Auto) 1.3, Monocytes # (Auto) 0.6, Eosinophils # (Auto) 0.0, Basophils # (Auto) 0.0, Immature Granulocyte # (Auto) 0.0, Percent Immature Platelet Fraction 7.0, Sodium Level 136, Potassium Level 3.4L, Chloride Level 103, Carbon Dioxide Level 23, Anion Gap 10, Blood Urea Nitrogen 14, Creatinine 0.87, Estimat Glomerular Filtration Rate 89, BUN/Creatinine Ratio 16, Glucose Level 105, Calcium Level 8.8, Corrected Calcium 8.8, Magnesium Level 2.0, Total Bilirubin 0.9, Aspartate Amino Transf (AST/SGOT) 27, Alanine Aminotransferase (ALT/SGPT) 19, Alkaline Phosphatase 63, Total Protein 7.8, Albumin 4.0 07/29/22 11:46: Glucometer 156H Pending Labs Laboratory Tests 07/25/22 15:36: Glucometer 90 07/25/22 20:38: Glucometer 101 07/26/22 05:13: White Blood Count 4.8, Red Blood Count 4.24, Hemoglobin 12.9, Hematocrit 37, Mean Corpuscular Volume 88, Mean Corpuscular Hemoglobin 30, Mean Corpuscular Hemoglobin Concent 35, Red Cell Distribution Width 13.0, Platelet Count 138, Mean Platelet Volume 11.1, Immature Granulocyte % (Auto) 0, Neutrophils (%) (Auto) 56, Lymphocytes (%) (Auto) 32, Monocytes (%) (Auto) 11, Eosinophils (%) (Auto) 0, Basophils (%) (Auto) 1, Neutrophils # (Auto) 2.7, Lymphocytes # (Auto) 1.5, Monocytes # (Auto) 0.5, Eosinophils # (Auto) 0.0, Basophils # (Auto) 0.0, Immature Granulocyte # (Auto) 0.0, Sodium Level 144, Potassium Level 3.3, Chloride Level 107, Carbon Dioxide Level 22, Anion Gap 15, Blood Urea Nitrogen 16, Creatinine 1.10, Estimat Glomerular Filtration Rate 69, BUN/Creatinine Ratio 15, Glucose Level 102, Calcium Level 8.8, Corrected Calcium 8.7, Phosphorus Level 2.7, Magnesium Level 1.8, Total Bilirubin 0.6, Aspartate Amino Transf (AST/SGOT) 38, Alanine Aminotransferase (ALT/SGPT) 25, Alkaline Phosphatase 56, Total Protein 7.9, Albumin 4.1, Vitamin B12 Level 404, Thyroid Stimulating Hormone (TSH) 2.06 07/26/22 06:14: Glucometer 121 07/26/22 11:47: Glucometer 145 07/26/22 16:55: Glucometer 108 07/26/22 19:41: Glucometer 113 07/27/22 05:05: White Blood Count 3.5, Red Blood Count 4.97, Hemoglobin 14.7, Hematocrit 44, Mean Corpuscular Volume 89, Mean Corpuscular Hemoglobin 30, Mean Corpuscular Hemoglobin Concent 33, Red Cell Distribution Width 13.0, Platelet Count 131, Ruth n Platelet Volume 11.4, Immature Granulocyte % (Auto) 0, Neutrophils (%) (Auto) 42, Lymphocytes (%) (Auto) 43, Monocytes (%) (Auto) 13, Eosinophils (%) (Auto) 1, Basophils (%) (Auto) 1, Neutrophils # (Auto) 1.5, Lymphocytes # (Auto) 1.5, Monocytes # (Auto) 0.5, Eosinophils # (Auto) 0.0, Basophils # (Auto) 0.0, Immature Granulocyte # (Auto) 0.0, Sodium Level 141, Potassium Level 4.1, Chloride Level 105, Carbon Dioxide Level 22, Anion Gap 14, Blood Urea Nitrogen 15, Creatinine 1.03, Estimat Glomerular Filtration Rate 75, BUN/Creatinine Ratio 15, Glucose Level 111, Calcium Level 9.4, Corrected Calcium 9.1, Magnesium Level 2.0, Total Bilirubin 0.9, Aspartate Amino Transf (AST/SGOT) 35, Alanine Aminotransferase (ALT/SGPT) 23, Alkaline Phosphatase 66, Total Protein 8.6, Albumin 4.4 07/27/22 12:54: Glucometer 124 07/27/22 15:40: Glucometer 96 07/27/22 19:42: Glucometer 99 07/28/22 05:00: White Blood Count 4.3, Red Blood Count 4.70, Hemoglobin 14.0, Hematocrit 42, Mean Corpuscular Volume 88, Mean Corpuscular Hemoglobin 30, Mean Corpuscular Hemoglobin Concent 34, Red Cell Distribution Width 12.8, Platelet Count 124, Mean Platelet Volume 11.2, Immature Granulocyte % (Auto) 0, Neutrophils (%) (Auto) 59, Lymphocytes (%) (Auto) 30, Monocytes (%) (Auto) 9, Eosinophils (%) (Auto) 1, Basophils (%) (Auto) 1, Neutrophils # (Auto) 2.6, Lymphocytes # (Auto) 1.3, Monocytes # (Auto) 0.4, Eosinophils # (Auto) 0.0, Basophils # (Auto) 0.0, Immature Granulocyte # (Auto) 0.0, Sodium Level 138, Potassium Level 3.7, Chloride Level 107, Carbon Dioxide Level 20, Anion Gap 11, Blood Urea Nitrogen 16, Creatinine 0.88, Estimat Glomerular Filtration Rate 89, BUN/Creatinine Ratio 18, Glucose Level 100, Calcium Level 8.6, Corrected Calcium 8.6, Magnesium Level 1.9, Total Bilirubin 0.8, Aspartate Amino Transf (AST/SGOT) 31, Alanine Aminotransferase (ALT/SGPT) 21, Alkaline Phosphatase 61, Total Protein 7.7, Albumin 4.0 07/28/22 05:58: Glucometer 110 07/28/22 10:20: Glucometer 108 07/28/22 16:24: Glucometer 122 07/28/22 20:01: Glucometer 102 07/29/22 04:58: Glucometer 114 07/29/22 06:16: White Blood Count 5.2, Red Blood Count 4.68, Hemoglobin 14.1, Hematocrit 41, Mean Corpuscular Volume 88, Mean Corpuscular Hemoglobin 30, Mean Corpuscular Hemoglobin Concent 34, Red Cell Distribution Width 13.0, Platelet Count 118, Mean Platelet Volume 11.3, Immature Granulocyte % (Auto) 0, Neutrophils (%) (Auto) 63, Lymphocytes (%) (Auto) 25, Monocytes (%) (Auto) 11, Eosinophils (%) (Auto) 0, Basophils (%) (Auto) 0, Neutrophils # (Auto) 3.3, Lymphocytes # (Auto) 1.3, Monocytes # (Auto) 0.6, Eosinophils # (Auto) 0.0, Basophils # (Auto) 0.0, Immature Granulocyte # (Auto) 0.0, Percent Immature Platelet Fraction 7.0, Sodium Level 136, Potassium Level 3.4, Chloride Level 103, Carbon Dioxide Level 23, Anion Gap 10, Blood Urea Nitrogen 14, Creatinine 0.87, Estimat Glomerular Filtration Rate 89, BUN/Creatinine Ratio 16, Glucose Level 105, Calcium Level 8.8, Corrected Calcium 8.8, Magnesium Level 2.0, Total Bilirubin 0.9, Aspartate Amino Transf (AST/SGOT) 27, Alanine Aminotransferase (ALT/SGPT) 19, Alkaline Phosphatase 63, Total Protein 7.8, Albumin 4.0 07/29/22 11:46: Glucometer 156 Discharge Home Medications: Active Scripts Active Cefuroxime (Cefuroxime Axetil) 500 Mg Tablet 500 Mg PO BID Amlodipine Besylate 10 Mg Tablet 10 Mg PO HS Reported Multivitamin 1 Each Tablet 1 Each PO DAILY Atorvastatin Calcium 20 Mg Tablet 20 Mg PO HS Metformin HCl 500 Mg Tablet 500 Mg PO BID WITH MEALS Instructions to patient/family Please see electronic discharge instructions given to patient. Diagnosis/Problems Diagnosis/Problems (1) Heart block (2) COVID (3) Hallucinations (4) Former smoker MANJIT GIRALDO DO Jul 29, 2022 12:33
[2022-07-29 13:20] VITALS: BP 139/81
--- NOTE | 2022-07-29 15:00 | Progress Note - Cardiology ---
Cardiology SOAP Progress Note Subjective: No cp or palp or syncope or shortness of breath No n/v/d No focal weakness Wishes to go home Objective: I&O/Vital Signs 07/29/22 07/29/22 07/29/22 07/29/22 05:00 05:01 07:00 08:09 Temp 36.3 36.2 Pulse 74 65 79 Resp 18 16 B/P (MAP) 139/77 (97) 179/84 (115) Pulse Ox 97 97 O2 Delivery Room Air Room Air Room Air 07/29/22 07/29/22 07/29/22 07/29/22 08:12 12:00 12:45 13:20 Temp 36.8 36.8 Pulse 78 81 81 Resp 18 18 B/P (MAP) 139/81 (100) 139/81 Pulse Ox 95 95 O2 Delivery Room Air Room Air Room Air O2 Flow Rate 2.00 07/29/22 00:00 Intake Total 900 ml Output Total 600 ml Balance 300 ml Constitutional: AAO x 3, well-developed, well-nourished Respiratory: No accessory muscle use, No respiratory distress; chest expansion is symmetric, chest is bilaterally symmetric, lungs clear to auscultation, other (prolonged exp phase) Cardiovascular: regular rate-rhythm; No JVD; S1 and S2 Gastrointestional: No tender; soft, round, audible bowel sounds Extremities: no lower extremity edema bilateral Neurologic/Psychiatric: grossly intact (moves all extremities) Skin: No rash on exposed areas, No ulcerations on exposed areas Results/Procedures: Labs Laboratory Tests 07/28/22 16:24: Glucometer 122H 07/28/22 20:01: Glucometer 102 07/29/22 04:58: Glucometer 114H 07/29/22 06:16: White Blood Count 5.2, Red Blood Count 4.68, Hemoglobin 14.1, Hematocrit 41, Mean Corpuscular Volume 88, Mean Corpuscular Hemoglobin 30, Mean Corpuscular Hemoglobin Concent 34, Red Cell Distribution Width 13.0, Platelet Count 118L, Mean Platelet Volume 11.3, Immature Granulocyte % (Auto) 0, Neutrophils (%) (Auto) 63, Lymphocytes (%) (Auto) 25, Monocytes (%) (Auto) 11, Eosinophils (%) (Auto) 0, Basophils (%) (Auto) 0, Neutrophils # (Auto) 3.3, Lymphocytes # (Auto) 1.3, Monocytes # (Auto) 0.6, Eosinophils # (Auto) 0.0, Basophils # (Auto) 0.0, Immature Granulocyte # (Auto) 0.0, Percent Immature Platelet Fraction 7.0, Sodium Level 136, Potassium Level 3.4L, Chloride Level 103, Carbon Dioxide Level 23, Anion Gap 10, Blood Urea Nitrogen 14, Creatinine 0.87, Estimat Glomerular Filtration Rate 89, BUN/Creatinine Ratio 16, Glucose Level 105, Calcium Level 8.8, Corrected Calcium 8.8, Magnesium Level 2.0, Total Bilirubin 0.9, Aspartate Amino Transf (AST/SGOT) 27, Alanine Aminotransferase (ALT/SGPT) 19, Alkaline Phosphatase 63, Total Protein 7.8, Albumin 4.0 07/29/22 11:46: Glucometer 156H A/P: Assessment: Bradyardia - Intermittent advanced AV block seen on EKG at [facility] on 07/25/22 - Echo on 07/25/22: LVEF normal (60-65%) - continuing intermittent advanced AV block despite cessation of the low dose of beta-zuri that he was on since the morning of 07/25/22 - dual ch pacemaker ([employer]tr[employer]) implantation on 07/27/22. Functioning normally on interrogation of 07/28/22 Dizziness and weakness COVID + - management per medical services HTN HLD DM 2 Intermittent confusion - managed by the Med svce Plan: Dressing removed. No signs of inflammation or hematoma. Edges healing well Post-op care discussed in detail Continue current regimen Oral antibiotic added for 5 days Outpt f/u advised Questions answered ADAM WARD MD FACP [facility] Jul 29, 2022 15:00
--- NOTE | 2022-07-29 15:18 | Progress Note ---
CHRISTA ERVIN 07/29/22 1518: Progress Note Manpreet is a 76yo male w/PMH of HTN, HLD and diabetes who was transferred here from [facility] after an EKG showed intermittent advanced AV block and bradycardia. He went to [facility] due to weakness and dizziness on 07/25 and was transfered here same day. He was bradycardic and COVID + on arrival. Cardiology was consulted and followed him throughout the stay. He was taking a beta zuri which was discontinued and after 48 hours his bradycardia & heart block had not resolved. He was taken to surgery for placement of a dual chamber pacemaker which was done without complication. His bradycardia resolved, weakness and shortness of breath both improved. He is COVID + but has minimal symptoms and is not requiring any oxygen. Manpreet will follow up with cardiology per their recommendations. VIVIEN GIRALDO DO 07/29/222058: Supervisory-Addendum Brief Verification & Attestation Participated in pt care: history, MDM, physical Personally performed: exam, history, MDM, supervision of care Care discussed with: Medical Student Procedures: n/a Results interpretation: Verified all documentation Verification and Attestation of Medical Student E/M Service A medical student performed and documented this service in my presence. I reviewed and verified all information documented by the medical student and made modifications to such information, when appropriate. I personally performed the physical exam and medical decision making. Vivien Giraldo, Jul 29, 2022,20:59 CHRISTA ERVIN Jul 29, 2022 15:18 VIVIEN GIRALDO DO Jul 29, 2022 20:59
[2022-07-30] MEDS ORDERED: amLODIPine 5 MG (NORVASC) TAB PO SCH (09:00)
== END 2022-07-29 13:20 | disposition home or self-care (01) | DRG 242 ==
LOC: ICU 14:03 → 4TH 07-28 15:47
PROVIDERS: ADMIT Internal Medicine; ATTEND Internal Medicine
PROC: 8E0ZXY6 Isolation (ICD-10-PCS; 2022-07-25)
PROC: 0JH606Z Insertion of Pacemaker, Dual Chamber into Chest Subcutaneous Tissue and Fascia, Open Approach (ICD-10-PCS; principal; 2022-07-27)
PROC: 02HK3JZ Insertion of Pacemaker Lead into Right Ventricle, Percutaneous Approach (ICD-10-PCS; 2022-07-27)
PROC: 02H63JZ Insertion of Pacemaker Lead into Right Atrium, Percutaneous Approach (ICD-10-PCS; 2022-07-27)
DX: I44.2 Atrioventricular block, complete (principal); U07.1 COVID-19; Z73.0 Burn-out; I10 Essential (primary) hypertension; E78.5 Hyperlipidemia, unspecified; E11.9 Type 2 diabetes mellitus without complications; F28 Other psychotic disorder not due to a substance or known physiological condition; R41.0 Disorientation, unspecified; E87.6 Hypokalemia; R42 Dizziness and giddiness; R53.1 Weakness; Z79.84 Long term (current) use of oral hypoglycemic drugs; Z79.899 Other long term (current) drug therapy; Z87.891 Personal history of nicotine dependence
CPT/HCPCS: 33208; 36415; 70450; 71045; 80053; 82607; 82947; 83735; 84100; 84443; 85025; 93005; 93308